=== PATIENT | female | born 1945 | race Caucasian/White ===

== ENCOUNTER 2020-09-03 00:36 | Inpatient (IN) | payer OTHER, MEDICAID, SELFPAY ==
[2020-09-03] VITALS (22 sets, daily range): BP systolic 98–145
[~2020-09-03] VITALS: Ht 165.1 cm; Wt 89.8 kg
[~2020-09-03 00:36] MED LIST: CARV25TA55 PO; CEL20 PO; CYCL-10 PO; ESCI20TA PO; ESOM40CA PO; FLUC200T PO; Fingerstick Blood Glucose Test XX; GABA300S PO; MULT PO; SIMV40TA2 PO; SITA100T11 PO; SSNOVOLOG SUBCUT
[2020-09-03] MEDS ORDERED: cefTRIAXone 1 GM IVPB PREMIX 50 ML IV ONE (00:45)
[2020-09-03] MEDS ORDERED: NEU300 PO (01:11)
[2020-09-03] MEDS ORDERED: LOPE2CAP PO (01:12)
[2020-09-03] MEDS ORDERED: LEVO250T58 PO (01:14)
[2020-09-03] MEDS ORDERED: ESCI20TA PO (01:15)
[2020-09-03] MEDS ORDERED: GLU500 PO (01:17)
[2020-09-03] MEDS ORDERED: LOSA100T3 PO (01:17)
[2020-09-03 01:21] LABS: BASOPHILS # (AUTO) 0.1 K/uL (0.0-0.2); BASOPHILS % (AUTO) 0.8 % (0.0-2.0); EOSINOPHILS # (AUTO) 0.4 K/uL (0.0-0.4); EOSINOPHILS % (AUTO) 2.1 % (0.0-4.0); LYMPHOCYTES # (AUTO) 2.8 K/uL (1.0-5.5); LYMPHOCYTES % (AUTO) 15.8 % (20.5-51.5); MEAN CORPUSCULAR HEMOGLOBIN 33 pg (27-31); MEAN CORPUSCULAR HGB CONC 33 % (32-36); MEAN CORPUSCULAR VOLUME 99 fL (79.0-98.0); MONOCYTES # (AUTO) 1.4 K/uL (0.0-1.0); MONOCYTES % (AUTO) 7.7 % (1.7-9.3); NEUTROPHILS # (AUTO) 13.2 K/uL (1.8-7.7); PLATELET COUNT (AUTO) 321 K/uL (130-430); RED CELL DISTRIBUTION WIDTH 13.3 % (9.0-15.0); WHITE BLOOD COUNT (AUTO) 17.9 K/uL (4.8-10.8)
[2020-09-03] MEDS ORDERED: BRI.2% EACH EYE (01:22)
[2020-09-03] MEDS ORDERED: ONDANSETRON HCL 4 MG/2 ML VIAL IVP ONE (01:30)
[2020-09-03] MEDS ORDERED: NACL 0.9% 1,000 ML IV ONE (01:30)
[2020-09-03 01:41] LABS: ALANINE AMINOTRANSFERASE 13 U/L (12-78); ALBUMIN 2.4 g/dL (3.4-4.8); ANION GAP 11 (5-15); ASPARTATE AMINOTRANSFERASE 15 U/L (10-37); CALCIUM 8.5 mg/dL (8.4-11.0); CHLORIDE 95 mmol/L (98-107); CREATININE 2.16 mg/dL (0.55-1.30); GLUCOSE 214 mg/dL (70-99); POTASSIUM 3.9 mmol/L (3.5-5.1); SODIUM SERUM 127 mmol/L (136-145); TOTAL BILIRUBIN 0.1 mg/dL (0.0-1.0)
[2020-09-03 01:42] LABS: HEMATOCRIT 12.9 % (36-48); HEMOGLOBIN 4.3 g/dL (12.0-16.0)
[2020-09-03 01:46] LABS: BILIRUBIN,URINE NEGATIVE (NEGATIVE); BLOOD, URINE NEGATIVE (NEGATIVE); COLOR,URINE YELLOW (YELLOW); GLUCOSE,URINE NEGATIVE (NEGATIVE); KETONES,URINE NEGATIVE (NEGATIVE); LEUKOCYTE ESTERASE ,URINE NEGATIVE (NEGATIVE); NITRITE, URINE NEGATIVE (NEGATIVE); PROTEIN URINE NEGATIVE (NEGATIVE); UROBILINOGEN,URINE 0.2 (0.2-1.0)
[2020-09-03 01:47] LABS: UREA NITROGEN, BLOOD 150 mg/dL (8-21)
[2020-09-03 01:50] LABS: CLARITY/URINE SLIGHTLY HAZY (CLEAR)
[2020-09-03 02:18] LABS: PROTHROMBIN TIME 10.4 SECS (9.5-12.5)
[2020-09-03] MEDS ORDERED: KCL 20 mEq in 0.45% NS 1000 mL 1,000 ML IV ONE (03:15)
[2020-09-03] MEDS ORDERED: FLU VACC QS2020-21(65UP)/PF 0.7 ML/SYRINGE I.M. PRN (05:00)
[2020-09-03] MEDS: ONDANSETRON HCL 4 MG/2 ML VIAL IVP PRN ×2 (09:06→13:09)
[2020-09-03] MEDS ORDERED: INSULIN REGULAR, HUMAN 100 UNITS/ML, 10 ML VIAL (humuLIN R) SUBCUT PRN (10:00)
[2020-09-03] MEDS: PANTOPRAZOLE SODIUM 40 MG in NS 50 ML IV SCH ×3 (10:11→16:22)
[2020-09-03] MEDS: KCL 20 mEq in D5NS 1000 mL 1,000 ML IV SCH ×2 (10:12→18:54)
[2020-09-03 13:34] LABS: NEUTROPHILS % (AUTO) 73.6 % (40.0-70.0)
[2020-09-03 19:02] LABS: HEMATOCRIT 26.9 % (36-48); HEMOGLOBIN 9.1 g/dL (12.0-16.0); MEAN CORPUSCULAR HEMOGLOBIN 32 pg (27-31); MEAN CORPUSCULAR HGB CONC 34 % (32-36); MEAN CORPUSCULAR VOLUME 95 fL (79.0-98.0); PLATELET COUNT (AUTO) 194 K/uL (130-430); RED BLOOD CELL COUNT(AUTO) 2.85 MIL/uL (4.2-6.2); RED CELL DISTRIBUTION WIDTH 13.9 % (9.0-15.0); WHITE BLOOD COUNT (AUTO) 20.4 K/uL (4.8-10.8)
[2020-09-03 20:15] LABS: BAND % (MANUAL) 6 % (0-6); BASOPHILS % (MANUAL) 0 % (0-2); EOSINOPHILS % (MANUAL) 1 % (0-7); LYMPHOCYTES % (MANUAL) 9 % (20-46); METAMYELOCYTES % 5 % (0-0); MONOCYTES % (MANUAL) 4 % (0-11)
[2020-09-04] VITALS (19 sets, daily range): BP systolic 120–152
[2020-09-04] MEDS: cefTRIAXone 1 GM in D5W 50 ML IV SCH ×2 (00:06→23:40)
[2020-09-04] MEDS: PANTOPRAZOLE SODIUM 40 MG in NS 50 ML IV SCH ×6 (01:00→20:43)
[2020-09-04] MEDS: KCL 20 mEq in D5NS 1000 mL 1,000 ML IV SCH (05:39)
[2020-09-04 07:05] LABS: ANION GAP 11 (5-15); BASOPHILS % (AUTO) 0.1 % (0.0-2.0); CALCIUM 7.2 mg/dL (8.4-11.0); CHLORIDE 110 mmol/L (98-107); CREATININE 1.51 mg/dL (0.55-1.30); EOSINOPHILS % (AUTO) 0.1 % (0.0-4.0); GLUCOSE 302 mg/dL (70-99); HEMATOCRIT 24.4 % (36-48); HEMOGLOBIN 8.1 g/dL (12.0-16.0); LYMPHOCYTES # (AUTO) 1.8 K/uL (1.0-5.5); LYMPHOCYTES % (AUTO) 8.4 % (20.5-51.5); MEAN CORPUSCULAR HEMOGLOBIN 31 pg (27-31); MEAN CORPUSCULAR HGB CONC 33 % (32-36); MEAN CORPUSCULAR VOLUME 94 fL (79.0-98.0); MONOCYTES # (AUTO) 2.2 K/uL (0.0-1.0); MONOCYTES % (AUTO) 10.2 % (1.7-9.3); NEUTROPHILS # (AUTO) 17.7 K/uL (1.8-7.7); NEUTROPHILS % (AUTO) 81.2 % (40.0-70.0); PLATELET COUNT (AUTO) 227 K/uL (130-430); SODIUM SERUM 143 mmol/L (136-145); UREA NITROGEN, BLOOD 99 mg/dL (8-21)
[2020-09-04 07:10] LABS: WHITE BLOOD COUNT (AUTO) 21.8 K/uL (4.8-10.8)
[2020-09-04] MEDS ORDERED: SIMETHICONE 40 MG/0.6 ML ML ONE (07:29)
[2020-09-04] MEDS ORDERED: BENZOCAINE 20% 0.5mL UD SPRAY MM ONE (07:29)
[2020-09-04] MEDS ORDERED: MIDAZOLAM HCL 5 MG/5 ML VIAL ONE (07:29)
[2020-09-04] MEDS ORDERED: fentaNYL CITRATE/PF 100 MCG/2 ML AMP ONE (07:29)
[2020-09-04 09:32] LABS: POTASSIUM 2.8 mmol/L (3.5-5.1)
[2020-09-04] MEDS ORDERED: KCL 40 mEq in 100 mL (PREMIX) 100 ML IV ONE (10:45)
[2020-09-04] MEDS ORDERED: POTASSIUM CHLORIDE 40 MEQ in D5W 250 ML IV ONE (11:00)
[2020-09-04] MEDS: POTASSIUM CHLORIDE 20 MEQ in 0.45% NACL 1,000 ML IV SCH ×2 (11:26→23:39)
[2020-09-05] MEDS: PANTOPRAZOLE SODIUM 40 MG in NS 50 ML IV SCH ×5 (00:59→22:10)
[2020-09-05] MEDS: ONDANSETRON HCL 4 MG/2 ML VIAL IVP PRN ×2 (05:19→20:11)
[2020-09-05 07:25] LABS: BASOPHILS % (AUTO) 0.2 % (0.0-2.0); EOSINOPHILS % (AUTO) 0.1 % (0.0-4.0); HEMATOCRIT 22.9 % (36-48); HEMOGLOBIN 7.8 g/dL (12.0-16.0); LYMPHOCYTES # (AUTO) 1.8 K/uL (1.0-5.5); LYMPHOCYTES % (AUTO) 8.4 % (20.5-51.5); MEAN CORPUSCULAR HEMOGLOBIN 32 pg (27-31); MEAN CORPUSCULAR HGB CONC 34 % (32-36); MEAN CORPUSCULAR VOLUME 92 fL (79.0-98.0); MONOCYTES # (AUTO) 2.1 K/uL (0.0-1.0); MONOCYTES % (AUTO) 9.9 % (1.7-9.3); NEUTROPHILS # (AUTO) 17.4 K/uL (1.8-7.7); PLATELET COUNT (AUTO) 267 K/uL (130-430); RED BLOOD CELL COUNT(AUTO) 2.48 MIL/uL (4.2-6.2); RED CELL DISTRIBUTION WIDTH 14.6 % (9.0-15.0); WHITE BLOOD COUNT (AUTO) 21.4 K/uL (4.8-10.8)
[2020-09-05 07:33] LABS: ANION GAP 8 (5-15); CHLORIDE 116 mmol/L (98-107); CREATININE 1.08 mg/dL (0.55-1.30); GLUCOSE 223 mg/dL (70-99); POTASSIUM 3.6 mmol/L (3.5-5.1); SODIUM SERUM 149 mmol/L (136-145); UREA NITROGEN, BLOOD 56 mg/dL (8-21)
[2020-09-05 07:40] LABS: NEUTROPHILS % (AUTO) 81.4 % (40.0-70.0)
[2020-09-05 08:00] VITALS: BP_SYST 151
[2020-09-05] MEDS ORDERED: CARVEDILOL 25 MG TABLET (COREG) PO ONE (10:45)
[2020-09-05] MEDS ORDERED: CITALOPRAM HYDROBROMIDE 20 MG TABLET PO ONE (10:45)
[2020-09-05 11:26] VITALS: BP_SYST 145
[2020-09-05] MEDS: POTASSIUM CHLORIDE 20 MEQ in 0.45% NACL 1,000 ML IV SCH (12:53)
[2020-09-05 15:37] VITALS: BP_SYST 142
[2020-09-05] MEDS ORDERED: *PPN PER PHARMACY XX PRN (18:00)
[2020-09-05] MEDS: CITALOPRAM HYDROBROMIDE 20 MG TABLET PO SCH (18:33)
[2020-09-05 19:45] VITALS: BP_SYST 124
[2020-09-05] MEDS: CARVEDILOL 25 MG TABLET (COREG) PO SCH (20:21)
[2020-09-05] MEDS: cefTRIAXone 1 GM in D5W 50 ML IV SCH (23:19)
[2020-09-06] VITALS: BP_SYST 134
[2020-09-06] MEDS: PANTOPRAZOLE SODIUM 40 MG in NS 50 ML IV SCH ×5 (03:10→23:03)
[2020-09-06] MEDS: POTASSIUM CHLORIDE 20 MEQ in 0.45% NACL 1,000 ML IV SCH (03:15)
[2020-09-06] MEDS: ONDANSETRON HCL 4 MG/2 ML VIAL IVP PRN ×4 (03:16→21:57)
[2020-09-06 07:08] LABS: ANION GAP 7 (5-15); CALCIUM 7.7 mg/dL (8.4-11.0); CHLORIDE 116 mmol/L (98-107); CREATININE 1.01 mg/dL (0.55-1.30); GLUCOSE 177 mg/dL (70-99); POTASSIUM 3.5 mmol/L (3.5-5.1); SODIUM SERUM 150 mmol/L (136-145); UREA NITROGEN, BLOOD 33 mg/dL (8-21)
[2020-09-06 08:10] LABS: BASOPHILS % (AUTO) 0.1 % (0.0-2.0); EOSINOPHILS # (AUTO) 0.1 K/uL (0.0-0.4); EOSINOPHILS % (AUTO) 0.4 % (0.0-4.0); HEMOGLOBIN 7.3 g/dL (12.0-16.0); LYMPHOCYTES # (AUTO) 1.9 K/uL (1.0-5.5); LYMPHOCYTES % (AUTO) 12.2 % (20.5-51.5); MEAN CORPUSCULAR HEMOGLOBIN 31 pg (27-31); MEAN CORPUSCULAR HGB CONC 33 % (32-36); MEAN CORPUSCULAR VOLUME 94 fL (79.0-98.0); MONOCYTES # (AUTO) 1.5 K/uL (0.0-1.0); MONOCYTES % (AUTO) 9.6 % (1.7-9.3); NEUTROPHILS # (AUTO) 12.3 K/uL (1.8-7.7); NEUTROPHILS % (AUTO) 77.7 % (40.0-70.0); PLATELET COUNT (AUTO) 276 K/uL (130-430); RED BLOOD CELL COUNT(AUTO) 2.35 MIL/uL (4.2-6.2); RED CELL DISTRIBUTION WIDTH 14.4 % (9.0-15.0); WHITE BLOOD COUNT (AUTO) 15.8 K/uL (4.8-10.8)
[2020-09-06] MEDS: CITALOPRAM HYDROBROMIDE 20 MG TABLET PO SCH ×2 (08:10→17:41)
[2020-09-06] MEDS: LOSARTAN POTASSIUM 50 MG TABLET (COZAAR) PO SCH (08:11)
[2020-09-06] MEDS: CARVEDILOL 25 MG TABLET (COREG) PO SCH ×2 (08:11→21:58)
[2020-09-06 08:23] VITALS: BP_SYST 123
[2020-09-06 09:07] LABS: PHOSPHORUS 1.9 mg/dL (2.7-4.5)
[2020-09-06 11:23] VITALS: BP_SYST 144
[2020-09-06] MEDS ORDERED: KCL 20 mEq in D5W 1000 mL 1,000 ML IV SCH (12:45)
[2020-09-06 15:27] VITALS: BP_SYST 140
[2020-09-06] MEDS ORDERED: K PHOS 15 MM in D5W 250 ML IV ONE (15:30)
[2020-09-06 19:55] VITALS: BP_SYST 127
[2020-09-06] MEDS ORDERED: MICONAZOLE NITRATE APPL VG SCH (21:00)
[2020-09-06] MEDS ORDERED: TPN PERIPHERAL IV SCH ×10 (21:00)
[2020-09-06] MEDS ORDERED: SODIUM ACETATE IV SCH ×10 (21:00)
[2020-09-06] MEDS ORDERED: POTASSIUM ACETATE IV SCH ×10 (21:00)
[2020-09-06] MEDS ORDERED: [UNRECOGNIZED DRUG - OTHER] IV SCH ×10 (21:00)
[2020-09-06] MEDS: KCL 20 mEq in D5W 1000 mL 1,000 ML IV SCH (22:07)
[2020-09-06] MEDS: cefTRIAXone 1 GM in D5W 50 ML IV SCH (23:06)
[2020-09-07] MEDS: PANTOPRAZOLE SODIUM 40 MG in NS 50 ML IV SCH ×5 (04:23→23:33)
[2020-09-07 06:36] LABS: BASOPHILS % (AUTO) 0.3 % (0.0-2.0); EOSINOPHILS # (AUTO) 0.2 K/uL (0.0-0.4); EOSINOPHILS % (AUTO) 1.9 % (0.0-4.0); HEMATOCRIT 24.1 % (36-48); LYMPHOCYTES % (AUTO) 17.4 % (20.5-51.5); MEAN CORPUSCULAR HEMOGLOBIN 31 pg (27-31); MEAN CORPUSCULAR HGB CONC 33 % (32-36); MEAN CORPUSCULAR VOLUME 94 fL (79.0-98.0); MONOCYTES # (AUTO) 1.3 K/uL (0.0-1.0); NEUTROPHILS % (AUTO) 69.4 % (40.0-70.0); PLATELET COUNT (AUTO) 227 K/uL (130-430); RED BLOOD CELL COUNT(AUTO) 2.57 MIL/uL (4.2-6.2); RED CELL DISTRIBUTION WIDTH 14.7 % (9.0-15.0); WHITE BLOOD COUNT (AUTO) 11.5 K/uL (4.8-10.8)
[2020-09-07 08:00] VITALS: BP_SYST 127
[2020-09-07] MEDS: CITALOPRAM HYDROBROMIDE 20 MG TABLET PO SCH ×2 (08:36→18:17)
[2020-09-07] MEDS: CARVEDILOL 25 MG TABLET (COREG) PO SCH ×2 (08:37→22:02)
[2020-09-07] MEDS: LOSARTAN POTASSIUM 50 MG TABLET (COZAAR) PO SCH (08:39)
[2020-09-07 09:45] LABS: ALANINE AMINOTRANSFERASE 18 U/L (12-78); ALBUMIN 2.3 g/dL (3.4-4.8); ANION GAP 6 (5-15); ASPARTATE AMINOTRANSFERASE 34 U/L (10-37); CHLORIDE 109 mmol/L (98-107); CREATININE 0.83 mg/dL (0.55-1.30); GLUCOSE 216 mg/dL (70-99); SODIUM SERUM 141 mmol/L (136-145); TOTAL BILIRUBIN 0.3 mg/dL (0.0-1.0); UREA NITROGEN, BLOOD 21 mg/dL (8-21)
[2020-09-07 09:46] LABS: POTASSIUM 4.4 mmol/L (3.5-5.1); TRIGLYCERIDES 187 mg/dL (30-150)
[2020-09-07 12:44] VITALS: BP_SYST 128
[2020-09-07] MEDS ORDERED: DIPHENHYDRAMINE INJ 50 MG/ML VIAL IVP PRN (15:45)
[2020-09-07] MEDS: KCL 20 mEq in D5W 1000 mL 1,000 ML IV SCH (15:55)
[2020-09-07 16:05] VITALS: BP_SYST 131
[2020-09-07] MEDS ORDERED: COMMUNICATION ORDER XX ONE (16:45)
[2020-09-07 20:10] VITALS: BP_SYST 114
[2020-09-07] MEDS ORDERED: SODIUM ACETATE IV SCH ×10 (21:00)
[2020-09-07] MEDS ORDERED: [UNRECOGNIZED DRUG - OTHER] IV SCH ×10 (21:00)
[2020-09-07] MEDS ORDERED: TPN PERIPHERAL IV SCH ×10 (21:00)
[2020-09-07] MEDS ORDERED: POTASSIUM ACETATE IV SCH ×10 (21:00)
[2020-09-07] MEDS: CLOTRIMAZOLE 2% 3 DAY VAGINAL 21 GM CREAM.APPL VG SCH (22:01)
[2020-09-07] MEDS: metFORMIN HCL 500 MG TABLET PO SCH (23:32)
[2020-09-07] MEDS: cefTRIAXone 1 GM in D5W 50 ML IV SCH (23:35)
[2020-09-08 00:04] VITALS: BP_SYST 114
[2020-09-08] MEDS: PANTOPRAZOLE SODIUM 40 MG in NS 50 ML IV SCH ×5 (02:56→22:39)
[2020-09-08] MEDS: KCL 20 mEq in D5W 1000 mL 1,000 ML IV SCH ×2 (05:22→11:56)
[2020-09-08 07:27] LABS: ALANINE AMINOTRANSFERASE 16 U/L (12-78); ALBUMIN 2.3 g/dL (3.4-4.8); ANION GAP 7 (5-15); ASPARTATE AMINOTRANSFERASE 25 U/L (10-37); CHLORIDE 104 mmol/L (98-107); CREATININE 0.84 mg/dL (0.55-1.30); GLUCOSE 144 mg/dL (70-99); PHOSPHORUS 2.7 mg/dL (2.7-4.5); POTASSIUM 3.9 mmol/L (3.5-5.1); SODIUM SERUM 137 mmol/L (136-145); TOTAL BILIRUBIN 0.3 mg/dL (0.0-1.0); UREA NITROGEN, BLOOD 15 mg/dL (8-21)
[2020-09-08] MEDS: CARVEDILOL 25 MG TABLET (COREG) PO SCH ×2 (08:06→21:15)
[2020-09-08] MEDS: CITALOPRAM HYDROBROMIDE 20 MG TABLET PO SCH ×2 (08:06→18:58)
[2020-09-08] MEDS: LOSARTAN POTASSIUM 50 MG TABLET (COZAAR) PO SCH (08:06)
[2020-09-08 10:22] LABS: BASOPHILS # (AUTO) 0.1 K/uL (0.0-0.2); BASOPHILS % (AUTO) 0.8 % (0.0-2.0); EOSINOPHILS # (AUTO) 0.6 K/uL (0.0-0.4); EOSINOPHILS % (AUTO) 4.9 % (0.0-4.0); HEMATOCRIT 27.6 % (36-48); HEMOGLOBIN 9.3 g/dL (12.0-16.0); LYMPHOCYTES # (AUTO) 1.6 K/uL (1.0-5.5); LYMPHOCYTES % (AUTO) 13.9 % (20.5-51.5); MEAN CORPUSCULAR HEMOGLOBIN 32 pg (27-31); MEAN CORPUSCULAR HGB CONC 34 % (32-36); MEAN CORPUSCULAR VOLUME 93 fL (79.0-98.0); MONOCYTES # (AUTO) 1.1 K/uL (0.0-1.0); MONOCYTES % (AUTO) 9.6 % (1.7-9.3); NEUTROPHILS # (AUTO) 8.1 K/uL (1.8-7.7); NEUTROPHILS % (AUTO) 70.8 % (40.0-70.0); PLATELET COUNT (AUTO) 235 K/uL (130-430); RED BLOOD CELL COUNT(AUTO) 2.96 MIL/uL (4.2-6.2); RED CELL DISTRIBUTION WIDTH 14.4 % (9.0-15.0); WHITE BLOOD COUNT (AUTO) 11.4 K/uL (4.8-10.8)
[2020-09-08] MEDS ORDERED: MAGNESIUM SULFATE 50 ML IV ONE (10:30)
[2020-09-08 12:00] VITALS: BP_SYST 121
[2020-09-08] MEDS: ONDANSETRON HCL 4 MG/2 ML VIAL IVP PRN (12:31)
[2020-09-08 16:00] VITALS: BP_SYST 117
[2020-09-08] MEDS ORDERED: MENTHOL/ZINC OXIDE 113 GM OINT. TP PRN (18:00)
[2020-09-08 18:08] LABS: HEMATOCRIT 29.4 % (36-48); HEMOGLOBIN 9.8 g/dL (12.0-16.0); MEAN CORPUSCULAR HEMOGLOBIN 31 pg (27-31); MEAN CORPUSCULAR VOLUME 93 fL (79.0-98.0); RED BLOOD CELL COUNT(AUTO) 3.16 MIL/uL (4.2-6.2); WHITE BLOOD COUNT (AUTO) 17.5 K/uL (4.8-10.8)
[2020-09-08 18:09] LABS: MEAN CORPUSCULAR HGB CONC 33 % (32-36); NEUTROPHILS % (AUTO) 84.8 % (40.0-70.0); PLATELET COUNT (AUTO) 248 K/uL (130-430); RED CELL DISTRIBUTION WIDTH 14.2 % (9.0-15.0)
[2020-09-08 18:10] LABS: BASOPHILS % (AUTO) 0.1 % (0.0-2.0); EOSINOPHILS # (AUTO) 0.4 K/uL (0.0-0.4); EOSINOPHILS % (AUTO) 2.5 % (0.0-4.0); LYMPHOCYTES % (AUTO) 5.5 % (20.5-51.5); MONOCYTES # (AUTO) 1.2 K/uL (0.0-1.0); MONOCYTES % (AUTO) 7.1 % (1.7-9.3); NEUTROPHILS # (AUTO) 14.8 K/uL (1.8-7.7)
[2020-09-08 20:45] VITALS: BP_SYST 120
[2020-09-08] MEDS: CLOTRIMAZOLE 2% 3 DAY VAGINAL 21 GM CREAM.APPL VG SCH (21:15)
[2020-09-08] MEDS: cefTRIAXone 1 GM in D5W 50 ML IV SCH (23:53)
[2020-09-08] MEDS: metFORMIN HCL 500 MG TABLET PO SCH (23:53)
[2020-09-09] MEDS: PANTOPRAZOLE SODIUM 40 MG in NS 50 ML IV SCH (03:03)
[2020-09-09] MEDS: LOSARTAN POTASSIUM 50 MG TABLET (COZAAR) PO SCH (09:00)
[2020-09-09] MEDS: MENTHOL/ZINC OXIDE 113 GM OINT. TP SCH (11:06)
[2020-09-09] MEDS: PANTOPRAZOLE SODIUM 40 MG/VIAL (PROTONIX) IVP SCH ×2 (11:06→20:37)
[2020-09-09] MEDS: CITALOPRAM HYDROBROMIDE 20 MG TABLET PO SCH ×2 (11:25→17:54)
[2020-09-09] MEDS: CARVEDILOL 25 MG TABLET (COREG) PO SCH ×2 (11:25→20:36)
[2020-09-09 12:00] VITALS: BP_SYST 121
[2020-09-09] MEDS: KCL 20 mEq in D5W 1000 mL 1,000 ML IV SCH (13:14)
[2020-09-09 16:20] VITALS: BP_SYST 105
[2020-09-09] MEDS ORDERED: metFORMIN HCL 500 MG TABLET PO ONE (17:00)
[2020-09-09 20:00] VITALS: BP_SYST 97
[2020-09-09] MEDS: CLOTRIMAZOLE 2% 3 DAY VAGINAL 21 GM CREAM.APPL VG SCH (20:36)
[2020-09-09] MEDS: cefTRIAXone 1 GM in D5W 50 ML IV SCH (22:56)
[2020-09-10 00:30] VITALS: BP_SYST 118
[2020-09-10] MEDS: ONDANSETRON HCL 4 MG/2 ML VIAL IVP PRN ×2 (03:17→08:15)
[2020-09-10] MEDS: metFORMIN HCL 500 MG TABLET PO SCH ×2 (06:02→18:15)
[2020-09-10] MEDS: KCL 20 mEq in D5W 1000 mL 1,000 ML IV SCH (06:02)
[2020-09-10 07:05] LABS: BASOPHILS % (AUTO) 0.4 % (0.0-2.0); EOSINOPHILS # (AUTO) 0.4 K/uL (0.0-0.4); EOSINOPHILS % (AUTO) 3.5 % (0.0-4.0); HEMATOCRIT 25.9 % (36-48); HEMOGLOBIN 8.6 g/dL (12.0-16.0); LYMPHOCYTES # (AUTO) 1.2 K/uL (1.0-5.5); LYMPHOCYTES % (AUTO) 9.9 % (20.5-51.5); MEAN CORPUSCULAR HEMOGLOBIN 31 pg (27-31); MEAN CORPUSCULAR HGB CONC 33 % (32-36); MEAN CORPUSCULAR VOLUME 94 fL (79.0-98.0); MONOCYTES % (AUTO) 8.3 % (1.7-9.3); NEUTROPHILS # (AUTO) 9.6 K/uL (1.8-7.7); NEUTROPHILS % (AUTO) 77.9 % (40.0-70.0); PLATELET COUNT (AUTO) 225 K/uL (130-430); RED BLOOD CELL COUNT(AUTO) 2.76 MIL/uL (4.2-6.2); RED CELL DISTRIBUTION WIDTH 14.2 % (9.0-15.0); WHITE BLOOD COUNT (AUTO) 12.3 K/uL (4.8-10.8)
[2020-09-10 07:23] LABS: ANION GAP 7 (5-15); CALCIUM 7.7 mg/dL (8.4-11.0); CHLORIDE 102 mmol/L (98-107); CREATININE 0.82 mg/dL (0.55-1.30); GLUCOSE 176 mg/dL (70-99); POTASSIUM 4.2 mmol/L (3.5-5.1); SODIUM SERUM 134 mmol/L (136-145); UREA NITROGEN, BLOOD 15 mg/dL (8-21)
[2020-09-10 08:00] VITALS: BP_SYST 114
[2020-09-10] MEDS: CITALOPRAM HYDROBROMIDE 20 MG TABLET PO SCH ×2 (08:15→18:15)
[2020-09-10] MEDS: PANTOPRAZOLE SODIUM 40 MG/VIAL (PROTONIX) IVP SCH ×2 (08:15→21:10)
[2020-09-10] MEDS: CARVEDILOL 25 MG TABLET (COREG) PO SCH ×2 (08:16→21:10)
[2020-09-10] MEDS: LOSARTAN POTASSIUM 50 MG TABLET (COZAAR) PO SCH (08:18)
[2020-09-10] MEDS: MENTHOL/ZINC OXIDE 113 GM OINT. TP SCH (08:19)
[2020-09-10 12:34] VITALS: BP_SYST 113
[2020-09-10 15:33] LABS: BASOPHILS # (AUTO) 0.1 K/uL (0.0-0.2); BASOPHILS % (AUTO) 0.5 % (0.0-2.0); EOSINOPHILS # (AUTO) 0.4 K/uL (0.0-0.4); HEMATOCRIT 24.7 % (36-48); HEMOGLOBIN 8.3 g/dL (12.0-16.0); LYMPHOCYTES # (AUTO) 0.9 K/uL (1.0-5.5); LYMPHOCYTES % (AUTO) 7.2 % (20.5-51.5); MEAN CORPUSCULAR HEMOGLOBIN 31 pg (27-31); MEAN CORPUSCULAR HGB CONC 34 % (32-36); MEAN CORPUSCULAR VOLUME 92 fL (79.0-98.0); MONOCYTES # (AUTO) 1.1 K/uL (0.0-1.0); MONOCYTES % (AUTO) 9.1 % (1.7-9.3); NEUTROPHILS % (AUTO) 80.2 % (40.0-70.0); PLATELET COUNT (AUTO) 213 K/uL (130-430); RED BLOOD CELL COUNT(AUTO) 2.68 MIL/uL (4.2-6.2); RED CELL DISTRIBUTION WIDTH 14.2 % (9.0-15.0); WHITE BLOOD COUNT (AUTO) 12.5 K/uL (4.8-10.8)
[2020-09-10 16:56] VITALS: BP_SYST 116
[2020-09-10 23:01] VITALS: BP_SYST 106
[2020-09-11 00:30] VITALS: BP_SYST 109
[2020-09-11] MEDS ORDERED: KCL 20 mEq in 100 mL (PREMIX) 100 ML IV ONE (02:29)
[2020-09-11] MEDS: KCL 20 mEq in D5W 1000 mL 1,000 ML IV SCH ×2 (02:41→20:48)
[2020-09-11] MEDS: ONDANSETRON HCL 4 MG/2 ML VIAL IVP PRN (04:37)
[2020-09-11] MEDS: metFORMIN HCL 500 MG TABLET PO SCH ×2 (06:12→17:07)
[2020-09-11 08:00] VITALS: BP_SYST 117
[2020-09-11] MEDS: MENTHOL/ZINC OXIDE 113 GM OINT. TP SCH (08:24)
[2020-09-11 08:55] LABS: BASOPHILS % (AUTO) 0.3 % (0.0-2.0); EOSINOPHILS # (AUTO) 0.4 K/uL (0.0-0.4); EOSINOPHILS % (AUTO) 3.6 % (0.0-4.0); HEMATOCRIT 27.5 % (36-48); HEMOGLOBIN 9.1 g/dL (12.0-16.0); LYMPHOCYTES # (AUTO) 0.8 K/uL (1.0-5.5); LYMPHOCYTES % (AUTO) 7.2 % (20.5-51.5); MEAN CORPUSCULAR HEMOGLOBIN 31 pg (27-31); MEAN CORPUSCULAR HGB CONC 33 % (32-36); MEAN CORPUSCULAR VOLUME 93 fL (79.0-98.0); MONOCYTES # (AUTO) 0.9 K/uL (0.0-1.0); MONOCYTES % (AUTO) 8.3 % (1.7-9.3); NEUTROPHILS # (AUTO) 9.1 K/uL (1.8-7.7); NEUTROPHILS % (AUTO) 80.6 % (40.0-70.0); PLATELET COUNT (AUTO) 234 K/uL (130-430); RED BLOOD CELL COUNT(AUTO) 2.97 MIL/uL (4.2-6.2); RED CELL DISTRIBUTION WIDTH 14.5 % (9.0-15.0); WHITE BLOOD COUNT (AUTO) 11.3 K/uL (4.8-10.8)
[2020-09-11] MEDS: PANTOPRAZOLE SODIUM 40 MG/VIAL (PROTONIX) IVP SCH ×2 (08:56→20:48)
[2020-09-11] MEDS: LOSARTAN POTASSIUM 50 MG TABLET (COZAAR) PO SCH (08:57)
[2020-09-11] MEDS: CITALOPRAM HYDROBROMIDE 20 MG TABLET PO SCH ×2 (08:58→17:07)
[2020-09-11] MEDS: CARVEDILOL 25 MG TABLET (COREG) PO SCH ×2 (08:58→20:50)
[2020-09-11 12:07] VITALS: BP_SYST 112
[2020-09-11 15:56] VITALS: BP_SYST 112
[2020-09-11 15:57] VITALS: BP_SYST 123
[2020-09-11 20:00] VITALS: BP_SYST 119
[2020-09-12] VITALS: BP_SYST 119
[2020-09-12] MEDS: metFORMIN HCL 500 MG TABLET PO SCH ×2 (06:02→17:23)
[2020-09-12] MEDS: KCL 20 mEq in D5W 1000 mL 1,000 ML IV SCH ×2 (06:06→23:21)
[2020-09-12 06:09] LABS: BASOPHILS % (AUTO) 0.3 % (0.0-2.0); EOSINOPHILS # (AUTO) 0.5 K/uL (0.0-0.4); EOSINOPHILS % (AUTO) 5.9 % (0.0-4.0); HEMATOCRIT 26.8 % (36-48); HEMOGLOBIN 9.1 g/dL (12.0-16.0); LYMPHOCYTES # (AUTO) 1.1 K/uL (1.0-5.5); LYMPHOCYTES % (AUTO) 12.9 % (20.5-51.5); MEAN CORPUSCULAR HEMOGLOBIN 31 pg (27-31); MEAN CORPUSCULAR HGB CONC 34 % (32-36); MEAN CORPUSCULAR VOLUME 92 fL (79.0-98.0); MONOCYTES # (AUTO) 1.1 K/uL (0.0-1.0); MONOCYTES % (AUTO) 11.9 % (1.7-9.3); NEUTROPHILS # (AUTO) 6.2 K/uL (1.8-7.7); PLATELET COUNT (AUTO) 264 K/uL (130-430); RED BLOOD CELL COUNT(AUTO) 2.92 MIL/uL (4.2-6.2); RED CELL DISTRIBUTION WIDTH 14.4 % (9.0-15.0); WHITE BLOOD COUNT (AUTO) 8.9 K/uL (4.8-10.8)
[2020-09-12 07:10] LABS: ANION GAP 6 (5-15); CALCIUM 8.6 mg/dL (8.4-11.0); CHLORIDE 100 mmol/L (98-107); CREATININE 0.84 mg/dL (0.55-1.30); GLUCOSE 152 mg/dL (70-99); PHOSPHORUS 3.4 mg/dL (2.7-4.5); SODIUM SERUM 134 mmol/L (136-145); UREA NITROGEN, BLOOD 15 mg/dL (8-21)
[2020-09-12 08:00] VITALS: BP_SYST 123
[2020-09-12 08:25] LABS: POTASSIUM 5.4 mmol/L (3.5-5.1)
[2020-09-12] MEDS: PANTOPRAZOLE SODIUM 40 MG/VIAL (PROTONIX) IVP SCH ×2 (08:47→20:13)
[2020-09-12] MEDS: CITALOPRAM HYDROBROMIDE 20 MG TABLET PO SCH ×2 (08:49→17:23)
[2020-09-12] MEDS: CARVEDILOL 25 MG TABLET (COREG) PO SCH ×2 (08:49→20:16)
[2020-09-12] MEDS: MENTHOL/ZINC OXIDE 113 GM OINT. TP SCH (08:50)
[2020-09-12] MEDS: LOSARTAN POTASSIUM 50 MG TABLET (COZAAR) PO SCH (08:50)
[2020-09-12] MEDS ORDERED: cefTRIAXone 1 GM in D5W 50 ML IV ONE (11:45)
[2020-09-12 12:00] VITALS: BP_SYST 121
[2020-09-12 16:00] VITALS: BP_SYST 122
[2020-09-12 20:00] VITALS: BP_SYST 109
[2020-09-13] VITALS: BP_SYST 119
[2020-09-13] MEDS: KCL 20 mEq in D5W 1000 mL 1,000 ML IV SCH (05:20)
[2020-09-13] MEDS: metFORMIN HCL 500 MG TABLET PO SCH ×2 (06:01→17:00)
[2020-09-13 07:55] VITALS: BP_SYST 130
[2020-09-13] MEDS: PANTOPRAZOLE SODIUM 40 MG/VIAL (PROTONIX) IVP SCH (08:34)
[2020-09-13] MEDS: LOSARTAN POTASSIUM 50 MG TABLET (COZAAR) PO SCH (08:34)
[2020-09-13] MEDS: CITALOPRAM HYDROBROMIDE 20 MG TABLET PO SCH (08:34)
[2020-09-13] MEDS: CARVEDILOL 25 MG TABLET (COREG) PO SCH (08:35)
[2020-09-13] MEDS: MENTHOL/ZINC OXIDE 113 GM OINT. TP SCH (08:39)
[2020-09-13 11:40] VITALS: BP_SYST 136
[2020-09-13 15:18] VITALS: BP_SYST 128
[2020-09-13 15:23] VITALS: BP_SYST 128
[2020-09-13] MEDS ORDERED: CITA40TA22 PO (15:55)
[2020-09-13] MEDS ORDERED: CEL20 PO (15:55)
[2020-09-13] MEDS ORDERED: DIPH25CA83 PO (15:56)
[2020-09-13] MEDS ORDERED: LINA5TAB2 PO (15:56)
[2020-09-13] MEDS ORDERED: CALMO120 TP (15:57)
[2020-09-13] MEDS ORDERED: ONDA4TAB5 PO (15:58)
[2020-09-13] MEDS ORDERED: PRO40 PO (15:59)
== END 2020-09-13 17:43 | DRG 377 ==
LOC: SED 00:36 → SIC 03:00 → STU 09-04 17:43
PROVIDERS: ADMIT Family Medicine; ATTEND Family Medicine
PROC: 30233N1 Transfusion of Nonautologous Red Blood Cells into Peripheral Vein, Percutaneous Approach (ICD-10-PCS; 2020-09-03)
PROC: 02HV33Z Insertion of Infusion Device into Superior Vena Cava, Percutaneous Approach (ICD-10-PCS; 2020-09-03)
PROC: B548ZZA Ultrasonography of Superior Vena Cava, Guidance (ICD-10-PCS; 2020-09-03)
PROC: 0DB68ZX Excision of Stomach, Via Natural or Artificial Opening Endoscopic, Diagnostic (ICD-10-PCS; principal; 2020-09-04 08:00)
DX: K26.4 Chronic or unspecified duodenal ulcer with hemorrhage (principal); K20.91 Esophagitis, unspecified with bleeding; N17.0 Acute kidney failure with tubular necrosis; D62 Acute posthemorrhagic anemia; K31.1 Adult hypertrophic pyloric stenosis; E11.22 Type 2 diabetes mellitus with diabetic chronic kidney disease; E11.43 Type 2 diabetes mellitus with diabetic autonomic (poly)neuropathy; E11.65 Type 2 diabetes mellitus with hyperglycemia; E66.01 Morbid (severe) obesity due to excess calories; E86.0 Dehydration; F32.9 Major depressive disorder, single episode, unspecified; F43.22 Adjustment disorder with anxiety; I12.9 Hypertensive chronic kidney disease with stage 1 through stage 4 chronic kidney disease, or unspecified chronic kidney disease; K31.84 Gastroparesis; K62.3 Rectal prolapse; N18.9 Chronic kidney disease, unspecified; Z20.828 Contact with and (suspected) exposure to other viral communicable diseases; K44.9 Diaphragmatic hernia without obstruction or gangrene; M19.90 Unspecified osteoarthritis, unspecified site; Z88.2 Allergy status to sulfonamides; Z79.4 Long term (current) use of insulin; Z88.8 Allergy status to other drugs, medicaments and biological substances; Z79.899 Other long term (current) drug therapy; Z68.32 Body mass index [BMI] 32.0-32.9, adult
CPT/HCPCS: 36415; 36430; 71045; 76700-TC; 76856-TC; 80048; 80053; 81003; 82962; 83036; 83605; 83735-TC; 83880; 84100-TC; 84478-TC; 84484; 85007; 85025; 85027; 85610-TC; 85730-TC; 86886; 86900; 86901; 86920; 87040-TC; 87081; 87086; 88305; 88312; 88313; 93005; 96361; 96365; 96375; 97110-GO; 97110-GP; 97112-GP; 97116-GP; 97530-GO; 97530-GP; 97535-GO; 99285; C1751; C9113; G0378; J0610; J0696; J2250; J2405; J3010; J3475; J3480; J7040; J7050; J7060; P9021

== ENCOUNTER 2021-11-07 01:24 | Emergency (ER) | payer OTHER, MEDICAID, SELFPAY ==
[~2021-11-07] VITALS: Ht 165.1 cm; Wt 83.9 kg
[~2021-11-07 01:24] MED LIST changes: +CALMO120 TP; +CITA40TA22 PO; -CYCL-10 PO; +DIPH25CA83 PO; -ESCI20TA PO; -ESOM40CA PO; -FLUC200T PO; -GABA300S PO; +GLU500 PO; +LINA5TAB2 PO; +LOSA100T3 PO; -MULT PO; +ONDA4TAB5 PO; +PRO40 PO; -SIMV40TA2 PO; -SITA100T11 PO; -SSNOVOLOG SUBCUT
[2021-11-07 01:34] VITALS: BP_SYST 155
--- NOTE | 2021-11-07 01:34 | NUR ---
Patient triaged and placed in AMBULANCE 1. VSS and patient appears in no acute distress at this time. Accompanied by , awaiting available bed, and MD notified of need for MSE.
--- NOTE | 2021-11-07 03:13 | NUR ---
PT BIB BLS AMBULANCE FROM [facility] FOR NAUSEA/ VOMITING X3 DAYS. PT STATES SHE GOT THE COVID BOOSTER ON THE 15 AND HAS BEEN FEELING WEIRD SINCE. - ABD PAIN. PT STATE SHE HAS HAD URINATING PAIN WELL. A&OX4. -CP
[2021-11-07] MEDS ORDERED: ONDANSETRON HCL 4 MG/2 ML VIAL IVP ONE ×2 (03:30→05:45)
--- NOTE | 2021-11-07 03:30 | NUR ---
# 20 gauge angiocath placed to RAC. Use of asceptic technique. Opsite placed over site. Blood return noted. Blood for lab drawn from site. Flushed with 10 cc of normal saline. No evidence of infiltration noted. Patient tolerated well.
[2021-11-07 04:28] LABS: BASOPHILS % (AUTO) 0.1 % (0.0-2.0); EOSINOPHILS % (AUTO) 0.3 % (0.0-4.0); HEMATOCRIT 34.4 % (36-48); HEMOGLOBIN 11.5 g/dL (12.0-16.0); LYMPHOCYTES # (AUTO) 1.3 K/uL (1.0-5.5); LYMPHOCYTES % (AUTO) 13.6 % (20.5-51.5); MEAN CORPUSCULAR HEMOGLOBIN 32 pg (27-31); MEAN CORPUSCULAR HGB CONC 34 % (32-36); MEAN CORPUSCULAR VOLUME 94 fL (79.0-98.0); MONOCYTES # (AUTO) 1.2 K/uL (0.0-1.0); MONOCYTES % (AUTO) 12.1 % (1.7-9.3); NEUTROPHILS # (AUTO) 7.3 K/uL (1.8-7.7); NEUTROPHILS % (AUTO) 73.9 % (40.0-70.0); PLATELET COUNT (AUTO) 240 K/uL (130-430); RED BLOOD CELL COUNT(AUTO) 3.65 MIL/uL (4.2-6.2); WHITE BLOOD COUNT (AUTO) 9.9 K/uL (4.8-10.8)
[2021-11-07 04:30] LABS: ANION GAP 8 (5-15); CALCIUM 8.7 mg/dL (8.4-11.0); CHLORIDE 97 mmol/L (98-107); GLUCOSE 162 mg/dL (70-99); SODIUM SERUM 134 mmol/L (136-145); UREA NITROGEN, BLOOD 28 mg/dL (8-21)
[2021-11-07 04:37] LABS: ALANINE AMINOTRANSFERASE 21 U/L (12-78); ALBUMIN 2.8 g/dL (3.4-4.8); ASPARTATE AMINOTRANSFERASE 16 U/L (10-37); LIPASE 207 U/L (73-393); TOTAL BILIRUBIN 0.6 mg/dL (0.0-1.0)
[2021-11-07 04:46] LABS: BILIRUBIN,URINE NEGATIVE (NEGATIVE); COLOR,URINE YELLOW (YELLOW); GLUCOSE,URINE NEGATIVE (NEGATIVE); KETONES,URINE NEGATIVE (NEGATIVE); LEUKOCYTE ESTERASE ,URINE 2+ (NEGATIVE); NITRITE, URINE NEGATIVE (NEGATIVE); PH,URINE 7.5 (5.0-8.0); PROTEIN URINE 1+ (NEGATIVE); UROBILINOGEN,URINE 0.2 (0.2-1.0)
[2021-11-07 04:47] LABS: BLOOD, URINE TRACE (NEGATIVE); CLARITY/URINE HAZY (CLEAR)
--- NOTE | 2021-11-07 05:13 | NUR ---
ER at bedside examining patient.
[2021-11-07] MEDS ORDERED: NACL 0.9% 1,000 ML IV ONE (05:15)
[2021-11-07] MEDS ORDERED: cefTRIAXone 1 GM IVPB PREMIX 50 ML IV ONE (05:15)
[2021-11-07 05:35] LABS: BACTERIA,URINE MANY /HPF (None Seen); WBC,URINE 20-50 /HPF (0-3)
[2021-11-07 05:36] LABS: MUCUS,URINE None Seen /LPF (None Seen); TRIPLE PHOSPHATE CRYSTAL,UR 0-10 /HPF (None Seen); URINE AMORPHOUS PHOSPHATES 1+ /HPF (None Seen)
--- NOTE | 2021-11-07 06:33 | NUR ---
PT GIVEN ENSURE FOR A FLUID CHALLENGE
--- NOTE | 2021-11-07 07:08 | NUR ---
REPORT RECIVED FROM CONOR LOMAX FOR CONTINUING CARE
--- NOTE | 2021-11-07 07:10 | NUR ---
ER DR. MURPHY AT THE BEDSIDE FOR ULTRASOUND
--- NOTE | 2021-11-07 07:15 | NUR ---
Patient resting quietly. No acute distress noted. Vital signs within normal range.
[2021-11-07] MEDS ORDERED: ONDA-8 TL (07:23)
[2021-11-07] MEDS ORDERED: CIPR-260 PO (07:23)
[2021-11-07 08:25] VITALS: BP_SYST 155
--- NOTE | 2021-11-07 08:25 | NUR ---
Patient given written and verbal discharge instructions and verbalizes understanding. ER MD discussed with patient the results and treatment provided. Patient in stable condition. ID arm band removed. IV catheter removed intact and dressing applied, no active bleeding. Rx of CIPRO AND ZOFRAN given. Patient educated on pain management and to follow up with PMD. Pain Scale 0/10. Opportunity for questions provided and answered. Medication side effect fact sheet provided.
== END 2021-11-07 08:25 | disposition home or self-care (01) ==
LOC: SED 01:24
DX: N39.0 Urinary tract infection, site not specified (principal); R11.2 Nausea with vomiting, unspecified; I10 Essential (primary) hypertension; E11.9 Type 2 diabetes mellitus without complications; Z79.899 Other long term (current) drug therapy; Z88.8 Allergy status to other drugs, medicaments and biological substances; Z79.84 Long term (current) use of oral hypoglycemic drugs; Z20.822 Contact with and (suspected) exposure to COVID-19
CPT/HCPCS: 36415; 80053; 81000; 83605; 83690; 83880; 84484; 85025; 87040; 87086; 87426; 93005; 96365; 96375; 96376; 99284; J0696; J2405

== ENCOUNTER 2022-03-26 11:15 | Inpatient (IN) | payer OTHER, MEDICAID ==
[~2022-03-26] VITALS: Ht 167.6 cm; Wt 83.5 kg
[~2022-03-26 11:15] MED LIST changes: +ACET325T GT; +CARV25TA55 PEG; -CARV25TA55 PO; +CEL20 PEG; -CEL20 PO; +CITA40TA22 PEG; -CITA40TA22 PO; +DIPH25CA83 PEG; -DIPH25CA83 PO; +ESCI10TA PO; -GLU500 PO; +LOPE2CAP PO; +LORA10CA PEG; +MECL-225 PEG; +ONDA-8 TL; +SACC250C3 PO; +SIMV40TA2 PEG
[2022-03-26 11:28] VITALS: BP_SYST 159
[2022-03-26 11:50] LABS: BASOPHILS # (AUTO) 0.1 K/uL (0.0-0.2); BASOPHILS % (AUTO) 0.5 % (0.0-2.0); EOSINOPHILS # (AUTO) 0.1 K/uL (0.0-0.4); EOSINOPHILS % (AUTO) 0.8 % (0.0-4.0); HEMATOCRIT 31.1 % (36-48); HEMOGLOBIN 10.2 g/dL (12.0-16.0); LYMPHOCYTES # (AUTO) 1.8 K/uL (1.0-5.5); LYMPHOCYTES % (AUTO) 10.3 % (20.5-51.5); MEAN CORPUSCULAR HEMOGLOBIN 28 pg (27-31); MEAN CORPUSCULAR HGB CONC 33 % (32-36); MEAN CORPUSCULAR VOLUME 87 fL (79.0-98.0); MONOCYTES # (AUTO) 0.7 K/uL (0.0-1.0); NEUTROPHILS % (AUTO) 84.4 % (40.0-70.0); PLATELET COUNT (AUTO) 205 K/uL (130-430); RED BLOOD CELL COUNT(AUTO) 3.59 MIL/uL (4.2-6.2); RED CELL DISTRIBUTION WIDTH 18.6 % (9.0-15.0); WHITE BLOOD COUNT (AUTO) 17.8 K/uL (4.8-10.8)
[2022-03-26 12:05] LABS: ANION GAP 8 (5-15); CALCIUM 7.9 mg/dL (8.4-11.0); CHLORIDE 106 mmol/L (98-107); CREATININE 2.31 mg/dL (0.55-1.30); GLUCOSE 209 mg/dL (70-99); POTASSIUM 3.3 mmol/L (3.5-5.1); SODIUM SERUM 141 mmol/L (136-145); UREA NITROGEN, BLOOD 37 mg/dL (8-21)
[2022-03-26] MEDS ORDERED: CALC1TAB26 PEG (12:12)
[2022-03-26] MEDS ORDERED: FERR-69 GT (12:12)
[2022-03-26] MEDS ORDERED: DOCU-144 PO (12:12)
[2022-03-26] MEDS ORDERED: DIFLUCAN IVPB (12:12)
[2022-03-26] MEDS ORDERED: FOLI-43 GT (12:12)
[2022-03-26] MEDS ORDERED: LACT1CAP69 PEG (12:12)
[2022-03-26] MEDS ORDERED: BISA-79 PO (12:12)
[2022-03-26] MEDS ORDERED: MOM GT (12:12)
[2022-03-26] MEDS ORDERED: PRO40 PEG (12:12)
[2022-03-26] MEDS ORDERED: SSREG SUBCUT (12:12)
[2022-03-26 12:18] LABS: ALBUMIN 1.8 g/dL (3.4-4.8); ASPARTATE AMINOTRANSFERASE 26 U/L (10-37); TOTAL BILIRUBIN 0.9 mg/dL (0.0-1.0)
[2022-03-26] MEDS ORDERED: ASPIRIN 81 MG TAB.CHEW PO ONE (12:30)
[2022-03-26] MEDS ORDERED: NITROGLYCERIN 1 INCH (GM) OINT. TP ONE (12:30)
[2022-03-26] MEDS ORDERED: FUROSEMIDE 40 MG/4 ML VIAL IVP ONE ×2 (12:30→13:45)
[2022-03-26 12:52] LABS: BILIRUBIN,URINE 1+ (NEGATIVE); BLOOD, URINE 3+ (NEGATIVE); CLARITY/URINE CLOUDY (CLEAR); COLOR,URINE YELLOW (YELLOW); GLUCOSE,URINE 2+ (NEGATIVE); KETONES,URINE NEGATIVE (NEGATIVE); LEUKOCYTE ESTERASE ,URINE 3+ (NEGATIVE); NITRITE, URINE NEGATIVE (NEGATIVE); PROTEIN URINE 3+ (NEGATIVE); UROBILINOGEN,URINE 0.2 (0.2-1.0)
[2022-03-26 12:57] LABS: ALANINE AMINOTRANSFERASE 2 U/L (12-78)
[2022-03-26] MEDS ORDERED: cefTRIAXone 1 GM IVPB PREMIX 50 ML IV ONE (13:00)
[2022-03-26 13:05] LABS: BACTERIA,URINE FEW /HPF (None Seen); RBC,URINE 20-50 /HPF (0-3); WBC,URINE >100 /HPF (0-3); YEAST,URINE Few /HPF (None Seen)
[2022-03-26] MEDS ORDERED: ASPIRIN 81 MG TAB.CHEW ONE (13:44)
[2022-03-26 14:52] VITALS: BP_SYST 140
[2022-03-26] MEDS ORDERED: MILK OF MAGNESIA 30 ML UDC GT PRN (15:30)
[2022-03-26] MEDS ORDERED: DIPHENHYDRAMINE HCL 12.5 MG/5 ML UDC GT PRN (15:30)
[2022-03-26] MEDS ORDERED: LevALBUTEROL HCL 1.25 MG/0.5 ML *CONC.* VIAL.NEB (XOPENEX CONC.) INH PRN (15:30)
[2022-03-26] MEDS ORDERED: GLUCOSE (DEXTROSE) ORAL GEL -Adults PO PRN (15:45)
[2022-03-26] MEDS ORDERED: DEXTROSE 50%-WATER 50 ML DISP.SYRIN IVP PRN (15:45)
[2022-03-26] MEDS ORDERED: D5W 1,000 ML IV PRN (15:45)
[2022-03-26] MEDS ORDERED: LevALBUTEROL HCL 1.25 MG/0.5 ML *CONC.* VIAL.NEB (XOPENEX CONC.) INH ONE ×2 (15:45→19:34)
[2022-03-26] MEDS ORDERED: LORATADINE 10 MG TABLET GT PRN (16:00)
[2022-03-26] MEDS ORDERED: hydrALAZINE HCL 25 MG TABLET GT ONE (16:45)
[2022-03-26] MEDS ORDERED: CITALOPRAM HYDROBROMIDE 20 MG TABLET ONE (17:51)
[2022-03-26] MEDS ORDERED: FLUCONAZOLE 200 mg/ NS 100 mL IVPB IV SCH (18:00)
[2022-03-26] MEDS: CITALOPRAM HYDROBROMIDE 20 MG TABLET GT SCH (18:13)
[2022-03-26] MEDS: FLUCONAZOLE 200 mg/ NS 100 ML IV SCH (18:14)
[2022-03-26 20:11] VITALS: BP_SYST 158
[2022-03-26] MEDS: LevALBUTEROL HCL 1.25 MG/0.5 ML *CONC.* VIAL.NEB (XOPENEX CONC.) INH SCH (20:13)
[2022-03-26 21:00] VITALS: BP_SYST 153
[2022-03-26] MEDS: CEFEPIME 1 GM in D5W 50 ML IV SCH (21:00)
[2022-03-26] MEDS ORDERED: LACTOBACILLUS ACIDOPHILUS PEG SCH (21:00)
[2022-03-26] MEDS ORDERED: NON-FORMULARY MEDICATION (Ferrous Sulfate 325 MG) GT SCH (21:00)
[2022-03-26] MEDS: CALCIUM CARBONATE/VITAMIN D3 1 TAB TABLET GT SCH (21:00)
[2022-03-26] MEDS: DOCUSATE SODIUM 100 MG/10 ML UDC GT SCH (21:30)
[2022-03-26] MEDS: FERROUS SULFATE 300 MG/5 ML UDC GT SCH (21:30)
[2022-03-26] MEDS: FUROSEMIDE 40 MG/4 ML VIAL IVP SCH (21:30)
[2022-03-26] MEDS: hydrALAZINE HCL 25 MG TABLET GT SCH (21:31)
[2022-03-26] MEDS: LACTOBACILLUS RHAMNOSUS GG 1 CAP CAPSULE GT SCH (21:32)
[2022-03-26] MEDS: SIMVASTATIN 40 MG TABLET GT SCH (21:32)
[2022-03-26] MEDS: CARVEDILOL 25 MG TABLET (COREG) GT SCH (21:32)
[2022-03-26] MEDS: ENOXAPARIN SODIUM 30 MG/0.3 ML SYRINGE SUBCUT SCH (21:33)
[2022-03-26 22:00] VITALS: BP_SYST 144
[2022-03-26 23:13] VITALS: BP_SYST 153
[2022-03-27] VITALS (23 sets, daily range): BP systolic 113–156
[2022-03-27] MEDS ORDERED: POTASSIUM CHLORIDE 20 MEQ TAB.PRT.SR PO ONE (05:45)
[2022-03-27 06:42] LABS: BASOPHILS % (AUTO) 0.2 % (0.0-2.0); EOSINOPHILS # (AUTO) 0.2 K/uL (0.0-0.4); EOSINOPHILS % (AUTO) 1.4 % (0.0-4.0); HEMATOCRIT 27.1 % (36-48); HEMOGLOBIN 8.9 g/dL (12.0-16.0); LYMPHOCYTES # (AUTO) 1.9 K/uL (1.0-5.5); LYMPHOCYTES % (AUTO) 14.7 % (20.5-51.5); MEAN CORPUSCULAR HEMOGLOBIN 29 pg (27-31); MEAN CORPUSCULAR HGB CONC 33 % (32-36); MEAN CORPUSCULAR VOLUME 88 fL (79.0-98.0); MONOCYTES # (AUTO) 0.9 K/uL (0.0-1.0); NEUTROPHILS # (AUTO) 9.7 K/uL (1.8-7.7); NEUTROPHILS % (AUTO) 76.7 % (40.0-70.0); PLATELET COUNT (AUTO) 149 K/uL (130-430); RED BLOOD CELL COUNT(AUTO) 3.08 MIL/uL (4.2-6.2); RED CELL DISTRIBUTION WIDTH 18.5 % (9.0-15.0); WHITE BLOOD COUNT (AUTO) 12.7 K/uL (4.8-10.8)
[2022-03-27 06:46] LABS: ANION GAP 9 (5-15); CALCIUM 7.7 mg/dL (8.4-11.0); CHLORIDE 108 mmol/L (98-107); CREATININE 2.29 mg/dL (0.55-1.30); GLUCOSE 189 mg/dL (70-99); SODIUM SERUM 144 mmol/L (136-145); UREA NITROGEN, BLOOD 39 mg/dL (8-21)
[2022-03-27 06:59] LABS: POTASSIUM 2.7 mmol/L (3.5-5.1)
[2022-03-27] MEDS ORDERED: POTASSIUM CHLORIDE 20 MEQ/PKT PACKET PO ONE (07:30)
[2022-03-27] MEDS ORDERED: POTASSIUM CHLORIDE 20 MEQ/PKT PACKET GT ONE (07:30)
[2022-03-27] MEDS ORDERED: KCL 40 mEq in 100 mL (PREMIX) 100 ML IV ONE (08:00)
[2022-03-27 08:10] LABS: POTASSIUM 3.5 mmol/L (3.5-5.1)
[2022-03-27] MEDS: LevALBUTEROL HCL 1.25 MG/0.5 ML *CONC.* VIAL.NEB (XOPENEX CONC.) INH SCH ×3 (08:58→19:29)
[2022-03-27] MEDS ORDERED: BISACODYL 5 MG TABLET.DR (DULCOLAX) PO SCH (09:00)
[2022-03-27] MEDS ORDERED: DIFLUCAN 200 MG IVPB SCH (09:00)
[2022-03-27] MEDS ORDERED: PANTOPRAZOLE SODIUM 40 MG TAB GT SCH (09:00)
[2022-03-27] MEDS: CALCIUM CARBONATE/VITAMIN D3 1 TAB TABLET GT SCH ×2 (09:00→20:57)
[2022-03-27] MEDS: LANSOPRAZOLE 30 MG CAPSULE.DR GT SCH (09:05)
[2022-03-27] MEDS: FOLIC ACID 1 MG TABLET GT SCH (09:07)
[2022-03-27] MEDS: DOCUSATE SODIUM 100 MG/10 ML UDC GT SCH ×2 (09:07→20:58)
[2022-03-27] MEDS: FERROUS SULFATE 300 MG/5 ML UDC GT SCH ×2 (09:08→20:59)
[2022-03-27] MEDS: LACTOBACILLUS RHAMNOSUS GG 1 CAP CAPSULE GT SCH ×2 (09:08→20:56)
[2022-03-27] MEDS: CARVEDILOL 25 MG TABLET (COREG) GT SCH ×2 (09:09→20:55)
[2022-03-27] MEDS: FUROSEMIDE 40 MG/4 ML VIAL IVP SCH ×2 (09:10→20:59)
[2022-03-27] MEDS: CEFEPIME 1 GM in D5W 50 ML IV SCH ×2 (09:57→21:00)
[2022-03-27] MEDS: hydrALAZINE HCL 25 MG TABLET GT SCH ×2 (14:21→20:56)
[2022-03-27] MEDS: CITALOPRAM HYDROBROMIDE 20 MG TABLET GT SCH (17:37)
[2022-03-27] MEDS: FLUCONAZOLE 200 mg/ NS 100 ML IV SCH (17:37)
[2022-03-27] MEDS: SIMVASTATIN 40 MG TABLET GT SCH (20:57)
[2022-03-27] MEDS ORDERED: POTASSIUM CHLORIDE 20 MEQ TAB.PRT.SR PO SCH (21:00)
[2022-03-27] MEDS: ONDANSETRON HCL 4 MG/2 ML VIAL IVP PRN (21:01)
[2022-03-27] MEDS: INSULIN REGULAR, HUMAN 100 UNITS/ML, 10 ML VIAL (humuLIN R) SUBCUT PRN (21:03)
[2022-03-27] MEDS: ENOXAPARIN SODIUM 30 MG/0.3 ML SYRINGE SUBCUT SCH (21:05)
[2022-03-27] MEDS: POTASSIUM CHLORIDE 20 MEQ/PKT PACKET PO SCH (21:31)
[2022-03-28] VITALS (24 sets, daily range): BP systolic 102–145
[2022-03-28] MEDS: INSULIN REGULAR, HUMAN 100 UNITS/ML, 10 ML VIAL (humuLIN R) SUBCUT PRN ×4 (00:27→19:03)
[2022-03-28] MEDS: LevALBUTEROL HCL 1.25 MG/0.5 ML *CONC.* VIAL.NEB (XOPENEX CONC.) INH SCH ×4 (04:33→19:38)
[2022-03-28] MEDS: LANSOPRAZOLE 30 MG CAPSULE.DR GT SCH (06:09)
[2022-03-28 06:32] LABS: BASOPHILS % (AUTO) 0.3 % (0.0-2.0); EOSINOPHILS # (AUTO) 0.3 K/uL (0.0-0.4); EOSINOPHILS % (AUTO) 1.9 % (0.0-4.0); HEMATOCRIT 25.2 % (36-48); HEMOGLOBIN 8.3 g/dL (12.0-16.0); LYMPHOCYTES # (AUTO) 2.2 K/uL (1.0-5.5); LYMPHOCYTES % (AUTO) 14.9 % (20.5-51.5); MEAN CORPUSCULAR HEMOGLOBIN 29 pg (27-31); MEAN CORPUSCULAR HGB CONC 33 % (32-36); MEAN CORPUSCULAR VOLUME 87 fL (79.0-98.0); MONOCYTES % (AUTO) 6.9 % (1.7-9.3); NEUTROPHILS # (AUTO) 11.3 K/uL (1.8-7.7); PLATELET COUNT (AUTO) 159 K/uL (130-430); RED BLOOD CELL COUNT(AUTO) 2.89 MIL/uL (4.2-6.2); RED CELL DISTRIBUTION WIDTH 19.3 % (9.0-15.0); WHITE BLOOD COUNT (AUTO) 14.8 K/uL (4.8-10.8)
[2022-03-28 07:33] LABS: ANION GAP 8 (5-15); CALCIUM 7.8 mg/dL (8.4-11.0); CHLORIDE 105 mmol/L (98-107); CREATININE 2.32 mg/dL (0.55-1.30); GLUCOSE 217 mg/dL (70-99); POTASSIUM 4.2 mmol/L (3.5-5.1); SODIUM SERUM 138 mmol/L (136-145); UREA NITROGEN, BLOOD 41 mg/dL (8-21)
[2022-03-28 07:48] LABS: ALANINE AMINOTRANSFERASE 3 U/L (12-78); ALBUMIN 1.7 g/dL (3.4-4.8); ASPARTATE AMINOTRANSFERASE 20 U/L (10-37); LIPASE 206 U/L (73-393); THYROID STIMULATING HORMONE 1.79 uIu/mL (0.36-3.74); TOTAL BILIRUBIN 0.6 mg/dL (0.0-1.0)
[2022-03-28] MEDS: POTASSIUM CHLORIDE 20 MEQ/PKT PACKET PO SCH ×2 (08:26→21:13)
[2022-03-28] MEDS: CALCIUM CARBONATE/VITAMIN D3 1 TAB TABLET GT SCH ×2 (08:27→21:17)
[2022-03-28] MEDS: DOCUSATE SODIUM 100 MG/10 ML UDC GT SCH ×2 (08:27→21:00)
[2022-03-28] MEDS: CARVEDILOL 25 MG TABLET (COREG) GT SCH ×2 (08:28→21:16)
[2022-03-28] MEDS: hydrALAZINE HCL 25 MG TABLET GT SCH ×2 (08:28→21:14)
[2022-03-28] MEDS: LACTOBACILLUS RHAMNOSUS GG 1 CAP CAPSULE GT SCH ×2 (08:28→21:23)
[2022-03-28] MEDS: FOLIC ACID 1 MG TABLET GT SCH (08:28)
[2022-03-28] MEDS: FERROUS SULFATE 300 MG/5 ML UDC GT SCH ×2 (08:28→21:13)
[2022-03-28] MEDS: FUROSEMIDE 40 MG/4 ML VIAL IVP SCH ×2 (08:29→21:15)
[2022-03-28] MEDS: CEFEPIME 1 GM in D5W 50 ML IV SCH (08:29)
[2022-03-28 08:37] LABS: CHOLESTEROL 61 mg/dL (<200); HDL CHOLESTEROL 19 mg/dL (>55); LDL CHOLESTEROL 31 mg/dL (<100); TRIGLYCERIDES 113 mg/dL (30-150)
[2022-03-28] MEDS ORDERED: MAGNESIUM SULFATE 50 ML IV ONE (09:15)
[2022-03-28] MEDS: PIPERACILLIN/TAZO 2.25G/DEX-IS 50 ML IV SCH ×2 (14:04→21:23)
[2022-03-28] MEDS ORDERED: GASTROGRAFIN 120 ML ONE (16:54)
[2022-03-28] MEDS: FLUCONAZOLE 200 mg/ NS 100 ML IV SCH (17:43)
[2022-03-28] MEDS: CITALOPRAM HYDROBROMIDE 20 MG TABLET GT SCH (17:44)
[2022-03-28] MEDS: metroNIDAZOLE 500 MG TABLET GT SCH (21:12)
[2022-03-28] MEDS: ENOXAPARIN SODIUM 30 MG/0.3 ML SYRINGE SUBCUT SCH (21:19)
[2022-03-28] MEDS: SIMVASTATIN 40 MG TABLET GT SCH (21:24)
[2022-03-29] VITALS (13 sets, daily range): BP systolic 107–133
[2022-03-29] MEDS: INSULIN REGULAR, HUMAN 100 UNITS/ML, 10 ML VIAL (humuLIN R) SUBCUT PRN ×4 (00:25→17:12)
[2022-03-29] MEDS: LevALBUTEROL HCL 1.25 MG/0.5 ML *CONC.* VIAL.NEB (XOPENEX CONC.) INH SCH ×2 (02:13→07:53)
[2022-03-29 05:48] LABS: BASOPHILS # (AUTO) 0.1 K/uL (0.0-0.2); BASOPHILS % (AUTO) 0.5 % (0.0-2.0); EOSINOPHILS # (AUTO) 0.5 K/uL (0.0-0.4); EOSINOPHILS % (AUTO) 2.5 % (0.0-4.0); HEMOGLOBIN 8.5 g/dL (12.0-16.0); LYMPHOCYTES # (AUTO) 2.1 K/uL (1.0-5.5); LYMPHOCYTES % (AUTO) 10.7 % (20.5-51.5); MEAN CORPUSCULAR HEMOGLOBIN 29 pg (27-31); MEAN CORPUSCULAR HGB CONC 33 % (32-36); MEAN CORPUSCULAR VOLUME 89 fL (79.0-98.0); MONOCYTES # (AUTO) 1.2 K/uL (0.0-1.0); MONOCYTES % (AUTO) 5.9 % (1.7-9.3); NEUTROPHILS # (AUTO) 16.1 K/uL (1.8-7.7); NEUTROPHILS % (AUTO) 80.4 % (40.0-70.0); PLATELET COUNT (AUTO) 186 K/uL (130-430); RED BLOOD CELL COUNT(AUTO) 2.92 MIL/uL (4.2-6.2); RED CELL DISTRIBUTION WIDTH 19.9 % (9.0-15.0)
[2022-03-29 06:01] LABS: ALANINE AMINOTRANSFERASE 8 U/L (12-78); ALBUMIN 1.6 g/dL (3.4-4.8); ASPARTATE AMINOTRANSFERASE 18 U/L (10-37); CALCIUM 7.7 mg/dL (8.4-11.0); CREATININE 2.41 mg/dL (0.55-1.30); GLUCOSE 146 mg/dL (70-99); TOTAL BILIRUBIN 0.3 mg/dL (0.0-1.0); UREA NITROGEN, BLOOD 42 mg/dL (8-21)
[2022-03-29] MEDS: metroNIDAZOLE 500 MG TABLET GT SCH (06:11)
[2022-03-29] MEDS: PIPERACILLIN/TAZO 2.25G/DEX-IS 50 ML IV SCH ×3 (06:18→22:29)
[2022-03-29] MEDS: LANSOPRAZOLE 30 MG CAPSULE.DR GT SCH (06:19)
[2022-03-29 06:25] LABS: ANION GAP 8 (5-15); CHLORIDE 104 mmol/L (98-107); POTASSIUM 4.6 mmol/L (3.5-5.1); SODIUM SERUM 138 mmol/L (136-145)
[2022-03-29] MEDS: FUROSEMIDE 40 MG/4 ML VIAL IVP SCH ×2 (08:24→22:29)
[2022-03-29] MEDS: FERROUS SULFATE 300 MG/5 ML UDC GT SCH ×2 (10:34→22:25)
[2022-03-29] MEDS: POTASSIUM CHLORIDE 20 MEQ/PKT PACKET PO SCH ×2 (10:34→22:51)
[2022-03-29] MEDS: DOCUSATE SODIUM 100 MG/10 ML UDC GT SCH ×2 (10:34→22:25)
[2022-03-29] MEDS: CARVEDILOL 25 MG TABLET (COREG) GT SCH ×2 (10:35→22:27)
[2022-03-29] MEDS: CALCIUM CARBONATE/VITAMIN D3 1 TAB TABLET GT SCH ×2 (10:36→22:25)
[2022-03-29] MEDS: FOLIC ACID 1 MG TABLET GT SCH (10:36)
[2022-03-29] MEDS: LACTOBACILLUS RHAMNOSUS GG 1 CAP CAPSULE GT SCH ×2 (10:36→22:26)
[2022-03-29] MEDS: hydrALAZINE HCL 25 MG TABLET GT SCH ×2 (10:37→22:28)
[2022-03-29] MEDS: CITALOPRAM HYDROBROMIDE 20 MG TABLET GT SCH (17:26)
[2022-03-29] MEDS: VANCOMYCIN HCL ORAL SOLUTION 250 MG/5 ML, 80 ML PO SCH ×3 (17:30→22:31)
[2022-03-29] MEDS: FLUCONAZOLE 200 mg/ NS 100 ML IV SCH (18:16)
[2022-03-29] MEDS ORDERED: LACTOBACILLUS RHAMNOSUS GG 1 CAP CAPSULE PO SCH (21:00)
[2022-03-29] MEDS: ENOXAPARIN SODIUM 30 MG/0.3 ML SYRINGE SUBCUT SCH (22:37)
[2022-03-29] MEDS: SIMVASTATIN 40 MG TABLET GT SCH (22:51)
[2022-03-30] MEDS: INSULIN REGULAR, HUMAN 100 UNITS/ML, 10 ML VIAL (humuLIN R) SUBCUT PRN ×2 (00:04→12:31)
[2022-03-30 00:08] VITALS: BP_SYST 126
[2022-03-30] MEDS: LevALBUTEROL HCL 1.25 MG/0.5 ML *CONC.* VIAL.NEB (XOPENEX CONC.) INH SCH ×4 (00:37→20:00)
[2022-03-30 06:49] LABS: BASOPHILS % (AUTO) 0.3 % (0.0-2.0); EOSINOPHILS # (AUTO) 0.4 K/uL (0.0-0.4); EOSINOPHILS % (AUTO) 2.9 % (0.0-4.0); HEMATOCRIT 26.7 % (36-48); HEMOGLOBIN 8.8 g/dL (12.0-16.0); LYMPHOCYTES % (AUTO) 13.6 % (20.5-51.5); MEAN CORPUSCULAR HEMOGLOBIN 29 pg (27-31); MEAN CORPUSCULAR HGB CONC 33 % (32-36); MEAN CORPUSCULAR VOLUME 89 fL (79.0-98.0); MONOCYTES # (AUTO) 0.9 K/uL (0.0-1.0); MONOCYTES % (AUTO) 6.1 % (1.7-9.3); NEUTROPHILS # (AUTO) 11.4 K/uL (1.8-7.7); NEUTROPHILS % (AUTO) 77.1 % (40.0-70.0); PLATELET COUNT (AUTO) 194 K/uL (130-430); RED BLOOD CELL COUNT(AUTO) 3.02 MIL/uL (4.2-6.2); RED CELL DISTRIBUTION WIDTH 20.3 % (9.0-15.0); WHITE BLOOD COUNT (AUTO) 14.8 K/uL (4.8-10.8)
[2022-03-30] MEDS: PIPERACILLIN/TAZO 2.25G/DEX-IS 50 ML IV SCH (06:56)
[2022-03-30 07:13] LABS: ALANINE AMINOTRANSFERASE 6 U/L (12-78); ALBUMIN 1.7 g/dL (3.4-4.8); ANION GAP 9 (5-15); ASPARTATE AMINOTRANSFERASE 14 U/L (10-37); CALCIUM 8.3 mg/dL (8.4-11.0); CHLORIDE 105 mmol/L (98-107); CREATININE 2.59 mg/dL (0.55-1.30); GLUCOSE 127 mg/dL (70-99); POTASSIUM 4.7 mmol/L (3.5-5.1); SODIUM SERUM 139 mmol/L (136-145); TOTAL BILIRUBIN 0.4 mg/dL (0.0-1.0); UREA NITROGEN, BLOOD 41 mg/dL (8-21)
[2022-03-30 08:00] VITALS: BP_SYST 140
[2022-03-30] MEDS: hydrALAZINE HCL 25 MG TABLET GT SCH ×2 (08:16→22:19)
[2022-03-30] MEDS: CALCIUM CARBONATE/VITAMIN D3 1 TAB TABLET GT SCH ×2 (08:16→22:21)
[2022-03-30] MEDS: CARVEDILOL 25 MG TABLET (COREG) GT SCH ×2 (08:17→22:22)
[2022-03-30] MEDS: POTASSIUM CHLORIDE 20 MEQ/PKT PACKET PO SCH ×2 (08:17→22:20)
[2022-03-30] MEDS: LANSOPRAZOLE 30 MG CAPSULE.DR GT SCH (08:18)
[2022-03-30] MEDS: LACTOBACILLUS RHAMNOSUS GG 1 CAP CAPSULE GT SCH ×2 (08:18→22:21)
[2022-03-30] MEDS: FERROUS SULFATE 300 MG/5 ML UDC GT SCH ×2 (08:18→22:18)
[2022-03-30] MEDS: FOLIC ACID 1 MG TABLET GT SCH (08:18)
[2022-03-30] MEDS: VANCOMYCIN HCL ORAL SOLUTION 250 MG/5 ML, 80 ML PO SCH ×4 (08:19→22:18)
[2022-03-30] MEDS: DOCUSATE SODIUM 100 MG/10 ML UDC GT SCH ×2 (08:20→22:18)
[2022-03-30] MEDS: FUROSEMIDE 40 MG/4 ML VIAL IVP SCH ×2 (10:09→22:23)
[2022-03-30 11:28] VITALS: BP_SYST 137
[2022-03-30 15:35] VITALS: BP_SYST 127
[2022-03-30] MEDS: CITALOPRAM HYDROBROMIDE 20 MG TABLET GT SCH (17:15)
[2022-03-30] MEDS: FLUCONAZOLE 200 mg/ NS 100 ML IV SCH (18:18)
[2022-03-30 20:00] VITALS: BP_SYST 146
[2022-03-30] MEDS: SIMVASTATIN 40 MG TABLET GT SCH (22:22)
[2022-03-30] MEDS: ENOXAPARIN SODIUM 30 MG/0.3 ML SYRINGE SUBCUT SCH (22:25)
[2022-03-31] VITALS: BP_SYST 138
[2022-03-31] MEDS: INSULIN REGULAR, HUMAN 100 UNITS/ML, 10 ML VIAL (humuLIN R) SUBCUT PRN ×4 (00:01→18:57)
[2022-03-31] MEDS: LevALBUTEROL HCL 1.25 MG/0.5 ML *CONC.* VIAL.NEB (XOPENEX CONC.) INH SCH ×4 (01:11→19:55)
[2022-03-31 03:58] VITALS: BP_SYST 126
[2022-03-31 04:00] VITALS: BP_SYST 126
[2022-03-31] MEDS: LANSOPRAZOLE 30 MG CAPSULE.DR GT SCH (06:32)
[2022-03-31 08:10] VITALS: BP_SYST 145
[2022-03-31] MEDS: DOCUSATE SODIUM 100 MG/10 ML UDC GT SCH ×2 (09:00→21:50)
[2022-03-31] MEDS: LACTOBACILLUS RHAMNOSUS GG 1 CAP CAPSULE GT SCH ×2 (09:31→21:53)
[2022-03-31] MEDS: FERROUS SULFATE 300 MG/5 ML UDC GT SCH ×2 (09:31→21:47)
[2022-03-31] MEDS: FOLIC ACID 1 MG TABLET GT SCH (09:32)
[2022-03-31] MEDS: POTASSIUM CHLORIDE 20 MEQ/PKT PACKET PO SCH ×2 (09:32→21:53)
[2022-03-31] MEDS: hydrALAZINE HCL 25 MG TABLET GT SCH ×2 (09:33→21:53)
[2022-03-31] MEDS: FUROSEMIDE 40 MG/4 ML VIAL IVP SCH ×2 (09:34→21:54)
[2022-03-31] MEDS: CARVEDILOL 25 MG TABLET (COREG) GT SCH ×2 (09:34→21:50)
[2022-03-31] MEDS: CALCIUM CARBONATE/VITAMIN D3 1 TAB TABLET GT SCH ×2 (09:35→21:51)
[2022-03-31] MEDS: VANCOMYCIN HCL ORAL SOLUTION 250 MG/5 ML, 80 ML PO SCH ×4 (09:35→21:55)
[2022-03-31 11:34] VITALS: BP_SYST 149
[2022-03-31 15:34] VITALS: BP_SYST 131
[2022-03-31] MEDS: CITALOPRAM HYDROBROMIDE 20 MG TABLET GT SCH (18:52)
[2022-03-31] MEDS: FLUCONAZOLE 200 mg/ NS 100 ML IV SCH (18:53)
[2022-03-31] MEDS: SIMVASTATIN 40 MG TABLET GT SCH (21:50)
[2022-03-31] MEDS: ENOXAPARIN SODIUM 30 MG/0.3 ML SYRINGE SUBCUT SCH (21:52)
[2022-04-01 00:35] VITALS: BP_SYST 147
[2022-04-01] MEDS: INSULIN REGULAR, HUMAN 100 UNITS/ML, 10 ML VIAL (humuLIN R) SUBCUT PRN ×4 (00:46→17:34)
[2022-04-01] MEDS: LevALBUTEROL HCL 1.25 MG/0.5 ML *CONC.* VIAL.NEB (XOPENEX CONC.) INH SCH ×4 (02:43→23:51)
[2022-04-01 04:00] VITALS: BP_SYST 144
[2022-04-01] MEDS: LANSOPRAZOLE 30 MG CAPSULE.DR GT SCH (07:46)
[2022-04-01 08:00] VITALS: BP_SYST 152
[2022-04-01 08:27] VITALS: BP_SYST 152
[2022-04-01] MEDS: NYSTATIN 30 GM TOPICAL CREAM TP SCH ×2 (09:00→21:25)
[2022-04-01 09:02] LABS: ALANINE AMINOTRANSFERASE 8 U/L (12-78); ALBUMIN 2.2 g/dL (3.4-4.8); ANION GAP 13 (5-15); ASPARTATE AMINOTRANSFERASE 15 U/L (10-37); CALCIUM 9.3 mg/dL (8.4-11.0); CHLORIDE 108 mmol/L (98-107); CREATININE 2.85 mg/dL (0.55-1.30); GLUCOSE 207 mg/dL (70-99); POTASSIUM 5.4 mmol/L (3.5-5.1); SODIUM SERUM 143 mmol/L (136-145); TOTAL BILIRUBIN 0.3 mg/dL (0.0-1.0); UREA NITROGEN, BLOOD 51 mg/dL (8-21)
[2022-04-01] MEDS: FUROSEMIDE 40 MG/4 ML VIAL IVP SCH (09:03)
[2022-04-01] MEDS: DOCUSATE SODIUM 100 MG/10 ML UDC GT SCH ×2 (09:03→21:14)
[2022-04-01] MEDS: FERROUS SULFATE 300 MG/5 ML UDC GT SCH ×2 (09:03→21:14)
[2022-04-01] MEDS: CARVEDILOL 25 MG TABLET (COREG) GT SCH ×2 (09:04→21:24)
[2022-04-01] MEDS: FOLIC ACID 1 MG TABLET GT SCH (09:04)
[2022-04-01] MEDS: POTASSIUM CHLORIDE 20 MEQ/PKT PACKET PO SCH (09:05)
[2022-04-01] MEDS: hydrALAZINE HCL 25 MG TABLET GT SCH ×2 (09:05→21:24)
[2022-04-01] MEDS: CALCIUM CARBONATE/VITAMIN D3 1 TAB TABLET GT SCH ×2 (09:05→21:25)
[2022-04-01] MEDS: VANCOMYCIN HCL ORAL SOLUTION 250 MG/5 ML, 80 ML PO SCH ×4 (09:05→21:25)
[2022-04-01] MEDS: LACTOBACILLUS RHAMNOSUS GG 1 CAP CAPSULE GT SCH ×2 (09:11→21:14)
[2022-04-01 10:21] LABS: BASOPHILS # (AUTO) 0.1 K/uL (0.0-0.2); BASOPHILS % (AUTO) 0.3 % (0.0-2.0); EOSINOPHILS # (AUTO) 0.1 K/uL (0.0-0.4); EOSINOPHILS % (AUTO) 0.8 % (0.0-4.0); LYMPHOCYTES # (AUTO) 2.8 K/uL (1.0-5.5); LYMPHOCYTES % (AUTO) 16.1 % (20.5-51.5); MEAN CORPUSCULAR HEMOGLOBIN 29 pg (27-31); MEAN CORPUSCULAR HGB CONC 32 % (32-36); MEAN CORPUSCULAR VOLUME 90 fL (79.0-98.0); MONOCYTES # (AUTO) 1.1 K/uL (0.0-1.0); MONOCYTES % (AUTO) 6.2 % (1.7-9.3); NEUTROPHILS # (AUTO) 13.3 K/uL (1.8-7.7); NEUTROPHILS % (AUTO) 76.6 % (40.0-70.0); PLATELET COUNT (AUTO) 303 K/uL (130-430); RED BLOOD CELL COUNT(AUTO) 3.68 MIL/uL (4.2-6.2); RED CELL DISTRIBUTION WIDTH 21.6 % (9.0-15.0); WHITE BLOOD COUNT (AUTO) 17.4 K/uL (4.8-10.8)
[2022-04-01 10:28] LABS: HEMOGLOBIN 10.7 g/dL (12.0-16.0)
[2022-04-01 11:29] VITALS: BP_SYST 143
[2022-04-01] MEDS: NACL 0.9% 1,000 ML IV SCH (15:30)
[2022-04-01 15:54] VITALS: BP_SYST 133
[2022-04-01] MEDS: FLUCONAZOLE 200 mg/ NS 100 ML IV SCH (17:28)
[2022-04-01] MEDS: CITALOPRAM HYDROBROMIDE 20 MG TABLET GT SCH (17:28)
[2022-04-01] MEDS: ENOXAPARIN SODIUM 30 MG/0.3 ML SYRINGE SUBCUT SCH (21:13)
[2022-04-01] MEDS: SIMVASTATIN 40 MG TABLET GT SCH (21:25)
[2022-04-02] MEDS: INSULIN REGULAR, HUMAN 100 UNITS/ML, 10 ML VIAL (humuLIN R) SUBCUT PRN ×4 (01:08→17:45)
[2022-04-02] MEDS: NACL 0.9% 1,000 ML IV SCH ×3 (01:09→20:29)
[2022-04-02] MEDS: LevALBUTEROL HCL 1.25 MG/0.5 ML *CONC.* VIAL.NEB (XOPENEX CONC.) INH SCH ×4 (03:07→19:40)
[2022-04-02 04:23] VITALS: BP_SYST 145
[2022-04-02] MEDS: LANSOPRAZOLE 30 MG CAPSULE.DR GT SCH (06:18)
[2022-04-02 07:35] LABS: BASOPHILS # (AUTO) 0.1 K/uL (0.0-0.2); BASOPHILS % (AUTO) 0.4 % (0.0-2.0); EOSINOPHILS # (AUTO) 0.1 K/uL (0.0-0.4); EOSINOPHILS % (AUTO) 0.6 % (0.0-4.0); HEMATOCRIT 31.6 % (36-48); HEMOGLOBIN 10.1 g/dL (12.0-16.0); LYMPHOCYTES # (AUTO) 2.8 K/uL (1.0-5.5); MEAN CORPUSCULAR HEMOGLOBIN 29 pg (27-31); MEAN CORPUSCULAR HGB CONC 32 % (32-36); MEAN CORPUSCULAR VOLUME 91 fL (79.0-98.0); MONOCYTES # (AUTO) 1.3 K/uL (0.0-1.0); MONOCYTES % (AUTO) 7.4 % (1.7-9.3); NEUTROPHILS # (AUTO) 13.3 K/uL (1.8-7.7); NEUTROPHILS % (AUTO) 75.6 % (40.0-70.0); PLATELET COUNT (AUTO) 309 K/uL (130-430); RED BLOOD CELL COUNT(AUTO) 3.46 MIL/uL (4.2-6.2); RED CELL DISTRIBUTION WIDTH 23.5 % (9.0-15.0); WHITE BLOOD COUNT (AUTO) 17.6 K/uL (4.8-10.8)
[2022-04-02 08:02] LABS: ALANINE AMINOTRANSFERASE 3 U/L (12-78); ALBUMIN 2.2 g/dL (3.4-4.8); ANION GAP 10 (5-15); ASPARTATE AMINOTRANSFERASE 19 U/L (10-37); CALCIUM 8.9 mg/dL (8.4-11.0); CHLORIDE 112 mmol/L (98-107); CREATININE 2.81 mg/dL (0.55-1.30); GLUCOSE 212 mg/dL (70-99); SODIUM SERUM 145 mmol/L (136-145); TOTAL BILIRUBIN 0.3 mg/dL (0.0-1.0); UREA NITROGEN, BLOOD 58 mg/dL (8-21)
[2022-04-02] MEDS: DOCUSATE SODIUM 100 MG/10 ML UDC GT SCH ×2 (09:20→20:25)
[2022-04-02] MEDS: FERROUS SULFATE 300 MG/5 ML UDC GT SCH ×2 (09:20→20:25)
[2022-04-02] MEDS: CARVEDILOL 25 MG TABLET (COREG) GT SCH ×2 (09:25→20:26)
[2022-04-02] MEDS: hydrALAZINE HCL 25 MG TABLET GT SCH ×2 (09:27→20:25)
[2022-04-02] MEDS: LACTOBACILLUS RHAMNOSUS GG 1 CAP CAPSULE GT SCH ×2 (09:27→20:30)
[2022-04-02] MEDS: VANCOMYCIN HCL ORAL SOLUTION 250 MG/5 ML, 80 ML PO SCH ×4 (09:28→20:29)
[2022-04-02] MEDS: CALCIUM CARBONATE/VITAMIN D3 1 TAB TABLET GT SCH ×2 (09:28→20:26)
[2022-04-02] MEDS: FOLIC ACID 1 MG TABLET GT SCH (09:28)
[2022-04-02] MEDS: NYSTATIN 30 GM TOPICAL CREAM TP SCH ×2 (09:29→20:31)
[2022-04-02 11:29] VITALS: BP_SYST 141
[2022-04-02] MEDS: metroNIDAZOLE 250 mg/NS 50 ML IV SCH ×2 (13:32→21:36)
[2022-04-02 16:04] VITALS: BP_SYST 156
[2022-04-02] MEDS: CITALOPRAM HYDROBROMIDE 20 MG TABLET GT SCH (17:40)
[2022-04-02] MEDS: FLUCONAZOLE 200 mg/ NS 100 ML IV SCH (17:40)
[2022-04-02] MEDS: SIMVASTATIN 40 MG TABLET GT SCH (20:26)
[2022-04-02] MEDS: ENOXAPARIN SODIUM 30 MG/0.3 ML SYRINGE SUBCUT SCH (20:28)
[2022-04-03] MEDS: INSULIN REGULAR, HUMAN 100 UNITS/ML, 10 ML VIAL (humuLIN R) SUBCUT PRN ×4 (00:12→18:28)
[2022-04-03 01:10] VITALS: BP_SYST 149
[2022-04-03] MEDS: LevALBUTEROL HCL 1.25 MG/0.5 ML *CONC.* VIAL.NEB (XOPENEX CONC.) INH SCH ×3 (01:43→13:28)
[2022-04-03] MEDS: metroNIDAZOLE 250 mg/NS 50 ML IV SCH ×3 (06:19→22:35)
[2022-04-03] MEDS: ONDANSETRON HCL 4 MG/2 ML VIAL IVP PRN (06:21)
[2022-04-03] MEDS: NACL 0.9% 1,000 ML IV SCH ×2 (07:00→17:00)
[2022-04-03 07:02] LABS: BASOPHILS # (AUTO) 0.1 K/uL (0.0-0.2); BASOPHILS % (AUTO) 0.4 % (0.0-2.0); EOSINOPHILS # (AUTO) 0.2 K/uL (0.0-0.4); HEMATOCRIT 29.2 % (36-48); HEMOGLOBIN 9.3 g/dL (12.0-16.0); LYMPHOCYTES # (AUTO) 2.7 K/uL (1.0-5.5); LYMPHOCYTES % (AUTO) 16.9 % (20.5-51.5); MEAN CORPUSCULAR HEMOGLOBIN 29 pg (27-31); MEAN CORPUSCULAR HGB CONC 32 % (32-36); MEAN CORPUSCULAR VOLUME 92 fL (79.0-98.0); MONOCYTES # (AUTO) 1.4 K/uL (0.0-1.0); MONOCYTES % (AUTO) 8.5 % (1.7-9.3); NEUTROPHILS # (AUTO) 11.6 K/uL (1.8-7.7); NEUTROPHILS % (AUTO) 73.2 % (40.0-70.0); PLATELET COUNT (AUTO) 316 K/uL (130-430); RED BLOOD CELL COUNT(AUTO) 3.18 MIL/uL (4.2-6.2); RED CELL DISTRIBUTION WIDTH 22.6 % (9.0-15.0); WHITE BLOOD COUNT (AUTO) 15.9 K/uL (4.8-10.8)
[2022-04-03 07:22] LABS: ANION GAP 10 (5-15); CALCIUM 8.2 mg/dL (8.4-11.0); CHLORIDE 116 mmol/L (98-107); CREATININE 2.38 mg/dL (0.55-1.30); GLUCOSE 187 mg/dL (70-99); POTASSIUM 4.4 mmol/L (3.5-5.1); SODIUM SERUM 147 mmol/L (136-145); UREA NITROGEN, BLOOD 54 mg/dL (8-21)
[2022-04-03 08:12] VITALS: BP_SYST 149
[2022-04-03] MEDS: DOCUSATE SODIUM 100 MG/10 ML UDC GT SCH ×2 (10:50→21:49)
[2022-04-03] MEDS: FERROUS SULFATE 300 MG/5 ML UDC GT SCH ×2 (10:50→21:49)
[2022-04-03] MEDS: LANSOPRAZOLE 30 MG CAPSULE.DR GT SCH (10:53)
[2022-04-03] MEDS: hydrALAZINE HCL 25 MG TABLET GT SCH ×2 (10:53→21:52)
[2022-04-03] MEDS: LACTOBACILLUS RHAMNOSUS GG 1 CAP CAPSULE GT SCH ×2 (10:53→21:50)
[2022-04-03] MEDS: ACETAMINOPHEN 325 MG TABLET GT PRN (10:54)
[2022-04-03] MEDS: FOLIC ACID 1 MG TABLET GT SCH (10:55)
[2022-04-03] MEDS: CARVEDILOL 25 MG TABLET (COREG) GT SCH ×2 (10:55→21:50)
[2022-04-03] MEDS: CALCIUM CARBONATE/VITAMIN D3 1 TAB TABLET GT SCH ×2 (10:56→21:50)
[2022-04-03] MEDS: NYSTATIN 30 GM TOPICAL CREAM TP SCH ×2 (10:57→21:49)
[2022-04-03] MEDS: VANCOMYCIN HCL ORAL SOLUTION 250 MG/5 ML, 80 ML PO SCH ×4 (10:58→21:56)
[2022-04-03 11:24] VITALS: BP_SYST 151
[2022-04-03 15:35] VITALS: BP_SYST 141
[2022-04-03] MEDS: FLUCONAZOLE 200 mg/ NS 100 ML IV SCH (18:28)
[2022-04-03] MEDS: CITALOPRAM HYDROBROMIDE 20 MG TABLET GT SCH (18:28)
[2022-04-03 20:00] VITALS: BP_SYST 160
[2022-04-03] MEDS: SIMVASTATIN 40 MG TABLET GT SCH (21:49)
[2022-04-03] MEDS: ENOXAPARIN SODIUM 30 MG/0.3 ML SYRINGE SUBCUT SCH (21:55)
[2022-04-04] VITALS: BP_SYST 133
[2022-04-04] MEDS: INSULIN REGULAR, HUMAN 100 UNITS/ML, 10 ML VIAL (humuLIN R) SUBCUT PRN ×4 (00:10→18:40)
[2022-04-04] MEDS: LevALBUTEROL HCL 1.25 MG/0.5 ML *CONC.* VIAL.NEB (XOPENEX CONC.) INH SCH ×4 (01:00→13:41)
[2022-04-04 01:15] VITALS: BP_SYST 133
[2022-04-04] MEDS: NACL 0.9% 1,000 ML IV SCH ×2 (02:49→13:00)
[2022-04-04 04:10] VITALS: BP_SYST 150
[2022-04-04] MEDS: metroNIDAZOLE 250 mg/NS 50 ML IV SCH ×3 (05:35→21:57)
[2022-04-04] MEDS: LANSOPRAZOLE 30 MG CAPSULE.DR GT SCH (06:07)
[2022-04-04 07:24] LABS: ANION GAP 11 (5-15); CALCIUM 8.2 mg/dL (8.4-11.0); CHLORIDE 119 mmol/L (98-107); CREATININE 2.13 mg/dL (0.55-1.30); GLUCOSE 175 mg/dL (70-99); POTASSIUM 4.2 mmol/L (3.5-5.1); SODIUM SERUM 150 mmol/L (136-145); UREA NITROGEN, BLOOD 52 mg/dL (8-21)
[2022-04-04] MEDS: ONDANSETRON HCL 4 MG/2 ML VIAL IVP PRN (07:34)
[2022-04-04 08:10] LABS: BASOPHILS # (AUTO) 0.1 K/uL (0.0-0.2); BASOPHILS % (AUTO) 0.6 % (0.0-2.0); EOSINOPHILS # (AUTO) 0.2 K/uL (0.0-0.4); EOSINOPHILS % (AUTO) 1.4 % (0.0-4.0); HEMATOCRIT 28.8 % (36-48); HEMOGLOBIN 9.2 g/dL (12.0-16.0); LYMPHOCYTES # (AUTO) 2.4 K/uL (1.0-5.5); LYMPHOCYTES % (AUTO) 17.9 % (20.5-51.5); MEAN CORPUSCULAR HEMOGLOBIN 30 pg (27-31); MEAN CORPUSCULAR HGB CONC 32 % (32-36); MEAN CORPUSCULAR VOLUME 92 fL (79.0-98.0); MONOCYTES # (AUTO) 0.9 K/uL (0.0-1.0); MONOCYTES % (AUTO) 6.6 % (1.7-9.3); NEUTROPHILS # (AUTO) 9.9 K/uL (1.8-7.7); NEUTROPHILS % (AUTO) 73.5 % (40.0-70.0); PLATELET COUNT (AUTO) 289 K/uL (130-430); RED BLOOD CELL COUNT(AUTO) 3.11 MIL/uL (4.2-6.2); RED CELL DISTRIBUTION WIDTH 23.4 % (9.0-15.0); WHITE BLOOD COUNT (AUTO) 13.5 K/uL (4.8-10.8)
[2022-04-04] MEDS: CALCIUM CARBONATE/VITAMIN D3 1 TAB TABLET GT SCH ×2 (09:50→21:54)
[2022-04-04] MEDS: hydrALAZINE HCL 25 MG TABLET GT SCH ×2 (09:50→21:56)
[2022-04-04] MEDS: CARVEDILOL 25 MG TABLET (COREG) GT SCH ×2 (09:51→21:55)
[2022-04-04] MEDS: FOLIC ACID 1 MG TABLET GT SCH (09:51)
[2022-04-04] MEDS: LACTOBACILLUS RHAMNOSUS GG 1 CAP CAPSULE GT SCH ×2 (09:51→21:55)
[2022-04-04] MEDS: FERROUS SULFATE 300 MG/5 ML UDC GT SCH ×2 (09:51→21:54)
[2022-04-04] MEDS: DOCUSATE SODIUM 100 MG/10 ML UDC GT SCH ×2 (09:51→21:54)
[2022-04-04] MEDS: NYSTATIN 30 GM TOPICAL CREAM TP SCH ×2 (09:56→21:58)
[2022-04-04] MEDS: VANCOMYCIN HCL ORAL SOLUTION 250 MG/5 ML, 80 ML PO SCH ×4 (09:56→21:58)
[2022-04-04 11:32] VITALS: BP_SYST 145
[2022-04-04 15:56] VITALS: BP_SYST 136
[2022-04-04] MEDS: 0.45% NACL 1,000 ML IV SCH (16:30)
[2022-04-04] MEDS: CITALOPRAM HYDROBROMIDE 20 MG TABLET GT SCH (18:28)
[2022-04-04 20:15] VITALS: BP_SYST 166
[2022-04-04] MEDS: SIMVASTATIN 40 MG TABLET GT SCH (21:55)
[2022-04-04] MEDS: ENOXAPARIN SODIUM 30 MG/0.3 ML SYRINGE SUBCUT SCH (22:00)
[2022-04-05] MEDS: INSULIN REGULAR, HUMAN 100 UNITS/ML, 10 ML VIAL (humuLIN R) SUBCUT PRN ×3 (00:23→18:00)
[2022-04-05 00:50] VITALS: BP_SYST 147
[2022-04-05] MEDS: LevALBUTEROL HCL 1.25 MG/0.5 ML *CONC.* VIAL.NEB (XOPENEX CONC.) INH SCH ×5 (01:30→20:11)
[2022-04-05] MEDS: metroNIDAZOLE 250 mg/NS 50 ML IV SCH ×3 (05:36→22:36)
[2022-04-05] MEDS: 0.45% NACL 1,000 ML IV SCH ×2 (05:38→14:36)
[2022-04-05] MEDS: LANSOPRAZOLE 30 MG CAPSULE.DR GT SCH (06:02)
[2022-04-05 08:00] VITALS: BP_SYST 164
[2022-04-05 08:14] LABS: BASOPHILS # (AUTO) 0.1 K/uL (0.0-0.2); BASOPHILS % (AUTO) 0.7 % (0.0-2.0); EOSINOPHILS # (AUTO) 0.2 K/uL (0.0-0.4); HEMATOCRIT 27.7 % (36-48); HEMOGLOBIN 9.1 g/dL (12.0-16.0); LYMPHOCYTES # (AUTO) 2.2 K/uL (1.0-5.5); LYMPHOCYTES % (AUTO) 18.3 % (20.5-51.5); MEAN CORPUSCULAR HEMOGLOBIN 30 pg (27-31); MEAN CORPUSCULAR HGB CONC 33 % (32-36); MEAN CORPUSCULAR VOLUME 92 fL (79.0-98.0); MONOCYTES # (AUTO) 0.9 K/uL (0.0-1.0); MONOCYTES % (AUTO) 7.4 % (1.7-9.3); NEUTROPHILS # (AUTO) 8.7 K/uL (1.8-7.7); NEUTROPHILS % (AUTO) 71.6 % (40.0-70.0); PLATELET COUNT (AUTO) 267 K/uL (130-430); RED BLOOD CELL COUNT(AUTO) 3.03 MIL/uL (4.2-6.2); RED CELL DISTRIBUTION WIDTH 24.2 % (9.0-15.0); WHITE BLOOD COUNT (AUTO) 12.2 K/uL (4.8-10.8)
[2022-04-05 08:42] LABS: ALANINE AMINOTRANSFERASE 8 U/L (12-78); ANION GAP 11 (5-15); ASPARTATE AMINOTRANSFERASE 18 U/L (10-37); CALCIUM 7.8 mg/dL (8.4-11.0); CHLORIDE 116 mmol/L (98-107); CREATININE 1.89 mg/dL (0.55-1.30); GLUCOSE 163 mg/dL (70-99); POTASSIUM 3.8 mmol/L (3.5-5.1); SODIUM SERUM 147 mmol/L (136-145); TOTAL BILIRUBIN 0.3 mg/dL (0.0-1.0); UREA NITROGEN, BLOOD 47 mg/dL (8-21)
[2022-04-05] MEDS: DOCUSATE SODIUM 100 MG/10 ML UDC GT SCH ×2 (09:00→21:52)
[2022-04-05] MEDS: CARVEDILOL 25 MG TABLET (COREG) GT SCH ×2 (09:01→21:52)
[2022-04-05] MEDS: FOLIC ACID 1 MG TABLET GT SCH (09:01)
[2022-04-05] MEDS: CALCIUM CARBONATE/VITAMIN D3 1 TAB TABLET GT SCH ×2 (09:04→21:53)
[2022-04-05] MEDS: FERROUS SULFATE 300 MG/5 ML UDC GT SCH ×2 (09:04→21:52)
[2022-04-05] MEDS: LACTOBACILLUS RHAMNOSUS GG 1 CAP CAPSULE GT SCH ×2 (09:04→21:51)
[2022-04-05] MEDS: hydrALAZINE HCL 25 MG TABLET GT SCH ×2 (09:04→21:52)
[2022-04-05] MEDS: VANCOMYCIN HCL ORAL SOLUTION 250 MG/5 ML, 80 ML PO SCH ×4 (09:05→21:53)
[2022-04-05] MEDS: NYSTATIN 30 GM TOPICAL CREAM TP SCH ×2 (09:05→21:53)
[2022-04-05 11:25] VITALS: BP_SYST 137
[2022-04-05 12:31] VITALS: BP_SYST 146
[2022-04-05] MEDS: CITALOPRAM HYDROBROMIDE 20 MG TABLET GT SCH (17:48)
[2022-04-05 20:00] VITALS: BP_SYST 157
[2022-04-05] MEDS: SIMVASTATIN 40 MG TABLET GT SCH (21:51)
[2022-04-05] MEDS: ENOXAPARIN SODIUM 30 MG/0.3 ML SYRINGE SUBCUT SCH (21:54)
[2022-04-05 23:56] VITALS: BP_SYST 151
[2022-04-06] MEDS: LevALBUTEROL HCL 1.25 MG/0.5 ML *CONC.* VIAL.NEB (XOPENEX CONC.) INH SCH ×4 (01:30→20:52)
[2022-04-06] MEDS: metroNIDAZOLE 250 mg/NS 50 ML IV SCH ×3 (06:35→20:59)
[2022-04-06 08:00] VITALS: BP_SYST 156
[2022-04-06] MEDS: FOLIC ACID 1 MG TABLET GT SCH (08:55)
[2022-04-06] MEDS: LACTOBACILLUS RHAMNOSUS GG 1 CAP CAPSULE GT SCH ×2 (08:55→20:49)
[2022-04-06] MEDS: hydrALAZINE HCL 25 MG TABLET GT SCH ×2 (08:56→20:48)
[2022-04-06] MEDS: CARVEDILOL 25 MG TABLET (COREG) GT SCH ×2 (08:56→20:49)
[2022-04-06] MEDS: CALCIUM CARBONATE/VITAMIN D3 1 TAB TABLET GT SCH ×2 (08:56→20:50)
[2022-04-06] MEDS: FERROUS SULFATE 300 MG/5 ML UDC GT SCH ×2 (08:56→20:50)
[2022-04-06] MEDS: LANSOPRAZOLE 30 MG CAPSULE.DR GT SCH (08:56)
[2022-04-06] MEDS: DOCUSATE SODIUM 100 MG/10 ML UDC GT SCH ×2 (08:58→20:49)
[2022-04-06] MEDS: NYSTATIN 30 GM TOPICAL CREAM TP SCH ×2 (09:00→20:54)
[2022-04-06] MEDS: VANCOMYCIN HCL ORAL SOLUTION 250 MG/5 ML, 80 ML PO SCH ×4 (09:00→20:56)
[2022-04-06] MEDS: 0.45% NACL 1,000 ML IV SCH ×2 (09:30→20:57)
[2022-04-06 11:28] VITALS: BP_SYST 152
[2022-04-06 15:26] VITALS: BP_SYST 151
[2022-04-06 19:00] VITALS: BP_SYST 151
[2022-04-06] MEDS: CITALOPRAM HYDROBROMIDE 20 MG TABLET GT SCH (19:26)
[2022-04-06 20:00] VITALS: BP_SYST 151
[2022-04-06] MEDS: SIMVASTATIN 40 MG TABLET GT SCH (20:50)
[2022-04-06] MEDS: ENOXAPARIN SODIUM 30 MG/0.3 ML SYRINGE SUBCUT SCH (21:01)
[2022-04-07 00:28] VITALS: BP_SYST 149
[2022-04-07] MEDS: LevALBUTEROL HCL 1.25 MG/0.5 ML *CONC.* VIAL.NEB (XOPENEX CONC.) INH SCH ×4 (01:37→19:43)
[2022-04-07] MEDS: ACETAMINOPHEN 325 MG TABLET GT PRN ×2 (05:39→21:05)
[2022-04-07] MEDS: LANSOPRAZOLE 30 MG CAPSULE.DR GT SCH (05:40)
[2022-04-07] MEDS: metroNIDAZOLE 250 mg/NS 50 ML IV SCH (05:40)
[2022-04-07 06:44] LABS: BASOPHILS # (AUTO) 0.1 K/uL (0.0-0.2); BASOPHILS % (AUTO) 0.6 % (0.0-2.0); EOSINOPHILS # (AUTO) 0.5 K/uL (0.0-0.4); EOSINOPHILS % (AUTO) 4.3 % (0.0-4.0); HEMATOCRIT 25.9 % (36-48); HEMOGLOBIN 8.8 g/dL (12.0-16.0); LYMPHOCYTES # (AUTO) 2.4 K/uL (1.0-5.5); LYMPHOCYTES % (AUTO) 21.9 % (20.5-51.5); MEAN CORPUSCULAR HEMOGLOBIN 30 pg (27-31); MEAN CORPUSCULAR HGB CONC 34 % (32-36); MEAN CORPUSCULAR VOLUME 90 fL (79.0-98.0); MONOCYTES # (AUTO) 0.9 K/uL (0.0-1.0); MONOCYTES % (AUTO) 8.1 % (1.7-9.3); NEUTROPHILS # (AUTO) 7.2 K/uL (1.8-7.7); NEUTROPHILS % (AUTO) 65.1 % (40.0-70.0); PLATELET COUNT (AUTO) 219 K/uL (130-430); RED BLOOD CELL COUNT(AUTO) 2.89 MIL/uL (4.2-6.2); RED CELL DISTRIBUTION WIDTH 23.1 % (9.0-15.0); WHITE BLOOD COUNT (AUTO) 11.1 K/uL (4.8-10.8)
[2022-04-07 07:09] LABS: ALANINE AMINOTRANSFERASE 11 U/L (12-78); ALBUMIN 1.9 g/dL (3.4-4.8); ANION GAP 13 (5-15); ASPARTATE AMINOTRANSFERASE 20 U/L (10-37); CALCIUM 7.7 mg/dL (8.4-11.0); CHLORIDE 103 mmol/L (98-107); CREATININE 1.54 mg/dL (0.55-1.30); GLUCOSE 102 mg/dL (70-99); POTASSIUM 3.5 mmol/L (3.5-5.1); SODIUM SERUM 134 mmol/L (136-145); TOTAL BILIRUBIN 0.4 mg/dL (0.0-1.0); UREA NITROGEN, BLOOD 36 mg/dL (8-21)
[2022-04-07 08:00] VITALS: BP_SYST 137
[2022-04-07] MEDS: DOCUSATE SODIUM 100 MG/10 ML UDC GT SCH ×2 (08:33→20:50)
[2022-04-07] MEDS: LACTOBACILLUS RHAMNOSUS GG 1 CAP CAPSULE GT SCH ×2 (08:34→20:51)
[2022-04-07] MEDS: FOLIC ACID 1 MG TABLET GT SCH (08:34)
[2022-04-07] MEDS: hydrALAZINE HCL 25 MG TABLET GT SCH ×2 (08:34→20:53)
[2022-04-07] MEDS: FERROUS SULFATE 300 MG/5 ML UDC GT SCH ×2 (08:35→20:50)
[2022-04-07] MEDS: CARVEDILOL 25 MG TABLET (COREG) GT SCH ×2 (08:35→20:50)
[2022-04-07] MEDS: CALCIUM CARBONATE/VITAMIN D3 1 TAB TABLET GT SCH ×2 (08:35→20:52)
[2022-04-07] MEDS: VANCOMYCIN HCL ORAL SOLUTION 250 MG/5 ML, 80 ML PO SCH ×3 (08:36→20:54)
[2022-04-07 08:40] VITALS: BP_SYST 149
[2022-04-07] MEDS: NYSTATIN 30 GM TOPICAL CREAM TP SCH ×2 (08:42→20:57)
[2022-04-07 11:27] VITALS: BP_SYST 155
[2022-04-07] MEDS: INSULIN REGULAR, HUMAN 100 UNITS/ML, 10 ML VIAL (humuLIN R) SUBCUT PRN ×2 (12:07→23:59)
[2022-04-07 15:38] VITALS: BP_SYST 145
[2022-04-07 20:00] VITALS: BP_SYST 150
[2022-04-07] MEDS: SIMVASTATIN 40 MG TABLET GT SCH (20:51)
[2022-04-07] MEDS: ENOXAPARIN SODIUM 30 MG/0.3 ML SYRINGE SUBCUT SCH (20:59)
[2022-04-08 00:08] VITALS: BP_SYST 141
[2022-04-08] MEDS: LevALBUTEROL HCL 1.25 MG/0.5 ML *CONC.* VIAL.NEB (XOPENEX CONC.) INH SCH ×4 (01:38→20:42)
[2022-04-08] MEDS: 0.45% NACL 1,000 ML IV SCH ×3 (03:31→12:23)
[2022-04-08 04:00] VITALS: BP_SYST 139
[2022-04-08] MEDS: LANSOPRAZOLE 30 MG CAPSULE.DR GT SCH (06:29)
[2022-04-08 08:00] VITALS: BP_SYST 157
[2022-04-08] MEDS: DOCUSATE SODIUM 100 MG/10 ML UDC GT SCH ×2 (09:01→21:00)
[2022-04-08] MEDS: FERROUS SULFATE 300 MG/5 ML UDC GT SCH ×2 (09:01→21:00)
[2022-04-08] MEDS: LACTOBACILLUS RHAMNOSUS GG 1 CAP CAPSULE GT SCH ×2 (09:02→21:00)
[2022-04-08] MEDS: FOLIC ACID 1 MG TABLET GT SCH (09:02)
[2022-04-08] MEDS: CALCIUM CARBONATE/VITAMIN D3 1 TAB TABLET GT SCH ×2 (09:02→21:01)
[2022-04-08] MEDS: VANCOMYCIN HCL ORAL SOLUTION 250 MG/5 ML, 80 ML PO SCH ×4 (09:08→21:08)
[2022-04-08] MEDS: CARVEDILOL 25 MG TABLET (COREG) GT SCH ×2 (09:09→21:03)
[2022-04-08] MEDS: NYSTATIN 30 GM TOPICAL CREAM TP SCH ×2 (09:10→21:09)
[2022-04-08] MEDS: hydrALAZINE HCL 25 MG TABLET GT SCH ×2 (09:11→21:02)
[2022-04-08 11:54] VITALS: BP_SYST 141
[2022-04-08] MEDS: INSULIN REGULAR, HUMAN 100 UNITS/ML, 10 ML VIAL (humuLIN R) SUBCUT PRN ×3 (12:22→23:42)
[2022-04-08 16:39] VITALS: BP_SYST 146
[2022-04-08] MEDS: CITALOPRAM HYDROBROMIDE 20 MG TABLET GT SCH (17:30)
[2022-04-08] MEDS: ACETAMINOPHEN 325 MG TABLET GT PRN (17:33)
[2022-04-08 20:00] VITALS: BP_SYST 128
[2022-04-08] MEDS: SIMVASTATIN 40 MG TABLET GT SCH (21:01)
[2022-04-08] MEDS: ENOXAPARIN SODIUM 30 MG/0.3 ML SYRINGE SUBCUT SCH (21:07)
[2022-04-09] VITALS: BP_SYST 120
[2022-04-09] MEDS: 0.45% NACL 1,000 ML IV SCH ×2 (01:07→16:43)
[2022-04-09 01:12] VITALS: BP_SYST 147
[2022-04-09] MEDS: LevALBUTEROL HCL 1.25 MG/0.5 ML *CONC.* VIAL.NEB (XOPENEX CONC.) INH SCH ×4 (01:19→20:28)
[2022-04-09 04:00] VITALS: BP_SYST 138
[2022-04-09] MEDS: LANSOPRAZOLE 30 MG CAPSULE.DR GT SCH (06:08)
[2022-04-09 08:00] VITALS: BP_SYST 127
[2022-04-09] MEDS: CALCIUM CARBONATE/VITAMIN D3 1 TAB TABLET GT SCH ×2 (09:29→21:25)
[2022-04-09] MEDS: LACTOBACILLUS RHAMNOSUS GG 1 CAP CAPSULE GT SCH ×2 (09:30→21:24)
[2022-04-09] MEDS: CARVEDILOL 25 MG TABLET (COREG) GT SCH ×2 (09:30→21:25)
[2022-04-09] MEDS: FOLIC ACID 1 MG TABLET GT SCH (09:30)
[2022-04-09] MEDS: hydrALAZINE HCL 25 MG TABLET GT SCH ×2 (09:31→21:26)
[2022-04-09] MEDS: FERROUS SULFATE 300 MG/5 ML UDC GT SCH ×2 (09:31→21:22)
[2022-04-09] MEDS: DOCUSATE SODIUM 100 MG/10 ML UDC GT SCH ×2 (09:32→21:00)
[2022-04-09] MEDS: VANCOMYCIN HCL ORAL SOLUTION 250 MG/5 ML, 80 ML PO SCH ×4 (09:33→21:00)
[2022-04-09] MEDS: NYSTATIN 30 GM TOPICAL CREAM TP SCH ×2 (09:34→21:28)
[2022-04-09 11:16] VITALS: BP_SYST 145
[2022-04-09] MEDS: INSULIN REGULAR, HUMAN 100 UNITS/ML, 10 ML VIAL (humuLIN R) SUBCUT PRN ×2 (12:20→17:33)
[2022-04-09 16:28] VITALS: BP_SYST 136
[2022-04-09] MEDS: CITALOPRAM HYDROBROMIDE 20 MG TABLET GT SCH (17:37)
[2022-04-09] MEDS: ENOXAPARIN SODIUM 30 MG/0.3 ML SYRINGE SUBCUT SCH (21:23)
[2022-04-09] MEDS: SIMVASTATIN 40 MG TABLET GT SCH (21:25)
[2022-04-10] MEDS: INSULIN REGULAR, HUMAN 100 UNITS/ML, 10 ML VIAL (humuLIN R) SUBCUT PRN ×3 (00:09→17:45)
[2022-04-10 00:35] VITALS: BP_SYST 123
[2022-04-10] MEDS: LevALBUTEROL HCL 1.25 MG/0.5 ML *CONC.* VIAL.NEB (XOPENEX CONC.) INH SCH ×4 (01:36→21:21)
[2022-04-10] MEDS: 0.45% NACL 1,000 ML IV SCH ×2 (05:50→17:42)
[2022-04-10] MEDS: LANSOPRAZOLE 30 MG CAPSULE.DR GT SCH (06:33)
[2022-04-10 07:09] LABS: HEMOGLOBIN 8.1 g/dL (12.0-16.0); MEAN CORPUSCULAR HEMOGLOBIN 31 pg (27-31); MEAN CORPUSCULAR HGB CONC 34 % (32-36); MEAN CORPUSCULAR VOLUME 91 fL (79.0-98.0); PLATELET COUNT (AUTO) 202 K/uL (130-430); RED BLOOD CELL COUNT(AUTO) 2.64 MIL/uL (4.2-6.2); RED CELL DISTRIBUTION WIDTH 25.5 % (9.0-15.0); WHITE BLOOD COUNT (AUTO) 11.7 K/uL (4.8-10.8)
[2022-04-10 07:59] LABS: ALANINE AMINOTRANSFERASE 13 U/L (12-78); ALBUMIN 1.9 g/dL (3.4-4.8); ANION GAP 9 (5-15); ASPARTATE AMINOTRANSFERASE 20 U/L (10-37); CALCIUM 8.3 mg/dL (8.4-11.0); CHLORIDE 99 mmol/L (98-107); CREATININE 1.55 mg/dL (0.55-1.30); GLUCOSE 154 mg/dL (70-99); POTASSIUM 4.9 mmol/L (3.5-5.1); SODIUM SERUM 129 mmol/L (136-145); TOTAL BILIRUBIN 0.3 mg/dL (0.0-1.0); UREA NITROGEN, BLOOD 44 mg/dL (8-21)
[2022-04-10 08:00] VITALS: BP_SYST 158
[2022-04-10] MEDS: FERROUS SULFATE 300 MG/5 ML UDC GT SCH ×2 (08:41→20:36)
[2022-04-10] MEDS: FOLIC ACID 1 MG TABLET GT SCH (08:41)
[2022-04-10] MEDS: CARVEDILOL 25 MG TABLET (COREG) GT SCH ×2 (08:41→20:37)
[2022-04-10] MEDS: CALCIUM CARBONATE/VITAMIN D3 1 TAB TABLET GT SCH ×2 (08:41→20:36)
[2022-04-10] MEDS: LACTOBACILLUS RHAMNOSUS GG 1 CAP CAPSULE GT SCH ×2 (08:41→20:36)
[2022-04-10] MEDS: hydrALAZINE HCL 25 MG TABLET GT SCH ×2 (08:42→20:37)
[2022-04-10] MEDS: DOCUSATE SODIUM 100 MG/10 ML UDC GT SCH ×2 (08:42→20:37)
[2022-04-10] MEDS: VANCOMYCIN HCL ORAL SOLUTION 250 MG/5 ML, 80 ML PO SCH ×4 (08:43→20:38)
[2022-04-10] MEDS: NYSTATIN 30 GM TOPICAL CREAM TP SCH ×2 (08:44→20:54)
[2022-04-10 12:10] LABS: BASOPHILS % (MANUAL) 0 % (0-2); EOSINOPHILS % (MANUAL) 6 % (0-7); LYMPHOCYTES % (MANUAL) 19 % (20-46); MONOCYTES % (MANUAL) 8 % (0-11)
[2022-04-10 12:40] VITALS: BP_SYST 147
[2022-04-10 16:18] VITALS: BP_SYST 140
[2022-04-10] MEDS: CITALOPRAM HYDROBROMIDE 20 MG TABLET GT SCH (17:42)
[2022-04-10 20:00] VITALS: BP_SYST 157
[2022-04-10] MEDS: SIMVASTATIN 40 MG TABLET GT SCH (20:40)
[2022-04-10] MEDS: ENOXAPARIN SODIUM 30 MG/0.3 ML SYRINGE SUBCUT SCH (20:50)
[2022-04-11 00:15] VITALS: BP_SYST 135
[2022-04-11] MEDS: INSULIN REGULAR, HUMAN 100 UNITS/ML, 10 ML VIAL (humuLIN R) SUBCUT PRN ×4 (00:39→23:41)
[2022-04-11] MEDS: LevALBUTEROL HCL 1.25 MG/0.5 ML *CONC.* VIAL.NEB (XOPENEX CONC.) INH SCH ×4 (01:14→21:16)
[2022-04-11] MEDS: LANSOPRAZOLE 30 MG CAPSULE.DR GT SCH (06:08)
[2022-04-11 06:42] LABS: BASOPHILS # (AUTO) 0.1 K/uL (0.0-0.2); BASOPHILS % (AUTO) 0.5 % (0.0-2.0); EOSINOPHILS # (AUTO) 0.7 K/uL (0.0-0.4); HEMATOCRIT 24.7 % (36-48); HEMOGLOBIN 8.5 g/dL (12.0-16.0); LYMPHOCYTES # (AUTO) 2.6 K/uL (1.0-5.5); LYMPHOCYTES % (AUTO) 21.2 % (20.5-51.5); MEAN CORPUSCULAR HEMOGLOBIN 31 pg (27-31); MEAN CORPUSCULAR HGB CONC 34 % (32-36); MEAN CORPUSCULAR VOLUME 91 fL (79.0-98.0); MONOCYTES # (AUTO) 1.2 K/uL (0.0-1.0); MONOCYTES % (AUTO) 9.3 % (1.7-9.3); NEUTROPHILS # (AUTO) 7.9 K/uL (1.8-7.7); PLATELET COUNT (AUTO) 208 K/uL (130-430); RED BLOOD CELL COUNT(AUTO) 2.71 MIL/uL (4.2-6.2); RED CELL DISTRIBUTION WIDTH 24.9 % (9.0-15.0); WHITE BLOOD COUNT (AUTO) 12.5 K/uL (4.8-10.8)
[2022-04-11 07:41] LABS: ANION GAP 10 (5-15); CALCIUM 8.5 mg/dL (8.4-11.0); CHLORIDE 100 mmol/L (98-107); CREATININE 1.61 mg/dL (0.55-1.30); GLUCOSE 158 mg/dL (70-99); POTASSIUM 5.5 mmol/L (3.5-5.1); SODIUM SERUM 131 mmol/L (136-145); UREA NITROGEN, BLOOD 47 mg/dL (8-21)
[2022-04-11 08:00] VITALS: BP_SYST 137
[2022-04-11] MEDS: CALCIUM CARBONATE/VITAMIN D3 1 TAB TABLET GT SCH ×2 (08:46→21:33)
[2022-04-11] MEDS: DOCUSATE SODIUM 100 MG/10 ML UDC GT SCH ×2 (08:46→21:30)
[2022-04-11] MEDS: FERROUS SULFATE 300 MG/5 ML UDC GT SCH ×2 (08:46→21:30)
[2022-04-11] MEDS: FOLIC ACID 1 MG TABLET GT SCH (08:46)
[2022-04-11] MEDS: CARVEDILOL 25 MG TABLET (COREG) GT SCH ×2 (08:47→21:31)
[2022-04-11] MEDS: hydrALAZINE HCL 25 MG TABLET GT SCH ×2 (08:48→21:35)
[2022-04-11] MEDS: LACTOBACILLUS RHAMNOSUS GG 1 CAP CAPSULE GT SCH ×2 (08:54→21:31)
[2022-04-11] MEDS: NYSTATIN 30 GM TOPICAL CREAM TP SCH ×2 (08:55→21:36)
[2022-04-11] MEDS ORDERED: SODIUM POLYSTYRENE SULFONATE 15 GM/60 ML UDBTL PO ONE (10:15)
[2022-04-11 11:26] VITALS: BP_SYST 135
[2022-04-11] MEDS: 0.45% NACL 1,000 ML IV SCH ×2 (11:49→21:43)
[2022-04-11 16:07] VITALS: BP_SYST 131
[2022-04-11] MEDS: CITALOPRAM HYDROBROMIDE 20 MG TABLET GT SCH (17:00)
[2022-04-11 20:00] VITALS: BP_SYST 148
[2022-04-11] MEDS: SIMVASTATIN 40 MG TABLET GT SCH (21:32)
[2022-04-11] MEDS: ENOXAPARIN SODIUM 30 MG/0.3 ML SYRINGE SUBCUT SCH (21:35)
[2022-04-12 00:50] VITALS: BP_SYST 128
[2022-04-12] MEDS: LevALBUTEROL HCL 1.25 MG/0.5 ML *CONC.* VIAL.NEB (XOPENEX CONC.) INH SCH ×4 (04:49→19:59)
[2022-04-12] MEDS: LANSOPRAZOLE 30 MG CAPSULE.DR GT SCH (05:57)
[2022-04-12 06:49] LABS: ANION GAP 10 (5-15); CALCIUM 8.7 mg/dL (8.4-11.0); CHLORIDE 98 mmol/L (98-107); GLUCOSE 143 mg/dL (70-99); POTASSIUM 5.3 mmol/L (3.5-5.1); SODIUM SERUM 130 mmol/L (136-145); UREA NITROGEN, BLOOD 48 mg/dL (8-21)
[2022-04-12 08:32] VITALS: BP_SYST 154
[2022-04-12] MEDS ORDERED: SODIUM POLYSTYRENE SULFONATE 15 GM/60 ML UDBTL PO ONE (09:30)
[2022-04-12] MEDS: FOLIC ACID 1 MG TABLET GT SCH (09:50)
[2022-04-12] MEDS: FERROUS SULFATE 300 MG/5 ML UDC GT SCH ×2 (09:50→21:55)
[2022-04-12] MEDS: DOCUSATE SODIUM 100 MG/10 ML UDC GT SCH ×2 (09:50→21:00)
[2022-04-12] MEDS: LACTOBACILLUS RHAMNOSUS GG 1 CAP CAPSULE GT SCH ×2 (09:50→21:56)
[2022-04-12] MEDS: CARVEDILOL 25 MG TABLET (COREG) GT SCH ×2 (09:51→21:58)
[2022-04-12] MEDS: CALCIUM CARBONATE/VITAMIN D3 1 TAB TABLET GT SCH ×2 (09:52→21:58)
[2022-04-12] MEDS: hydrALAZINE HCL 25 MG TABLET GT SCH ×2 (09:52→21:53)
[2022-04-12] MEDS: NYSTATIN 30 GM TOPICAL CREAM TP SCH ×2 (09:54→21:59)
[2022-04-12 11:29] VITALS: BP_SYST 132
[2022-04-12] MEDS: INSULIN REGULAR, HUMAN 100 UNITS/ML, 10 ML VIAL (humuLIN R) SUBCUT PRN ×3 (12:42→23:33)
[2022-04-12] MEDS: ACETAMINOPHEN 325 MG TABLET GT PRN (12:42)
[2022-04-12] MEDS: 0.45% NACL 1,000 ML IV SCH (12:46)
[2022-04-12 15:55] VITALS: BP_SYST 121
[2022-04-12] MEDS: CITALOPRAM HYDROBROMIDE 20 MG TABLET GT SCH (17:47)
[2022-04-12 20:00] VITALS: BP_SYST 157
[2022-04-12] MEDS: SIMVASTATIN 40 MG TABLET GT SCH (21:52)
[2022-04-12] MEDS: ENOXAPARIN SODIUM 30 MG/0.3 ML SYRINGE SUBCUT SCH (22:01)
[2022-04-12 23:45] VITALS: BP_SYST 149
[2022-04-13 00:25] VITALS: BP_SYST 149
[2022-04-13] MEDS: LevALBUTEROL HCL 1.25 MG/0.5 ML *CONC.* VIAL.NEB (XOPENEX CONC.) INH SCH ×3 (01:00→13:38)
[2022-04-13] MEDS: 0.45% NACL 1,000 ML IV SCH ×2 (03:27→13:50)
[2022-04-13] MEDS: LANSOPRAZOLE 30 MG CAPSULE.DR GT SCH (06:20)
[2022-04-13] MEDS: INSULIN REGULAR, HUMAN 100 UNITS/ML, 10 ML VIAL (humuLIN R) SUBCUT PRN ×2 (06:27→12:25)
[2022-04-13 08:00] VITALS: BP_SYST 135
[2022-04-13] MEDS: FOLIC ACID 1 MG TABLET GT SCH (08:56)
[2022-04-13] MEDS: LACTOBACILLUS RHAMNOSUS GG 1 CAP CAPSULE GT SCH (08:56)
[2022-04-13] MEDS: FERROUS SULFATE 300 MG/5 ML UDC GT SCH (08:56)
[2022-04-13] MEDS: DOCUSATE SODIUM 100 MG/10 ML UDC GT SCH (08:56)
[2022-04-13] MEDS: CALCIUM CARBONATE/VITAMIN D3 1 TAB TABLET GT SCH (08:56)
[2022-04-13] MEDS: hydrALAZINE HCL 25 MG TABLET GT SCH (08:57)
[2022-04-13] MEDS: CARVEDILOL 25 MG TABLET (COREG) GT SCH (08:57)
[2022-04-13] MEDS: NYSTATIN 30 GM TOPICAL CREAM TP SCH (08:58)
[2022-04-13 11:26] VITALS: BP_SYST 134
[2022-04-13 13:42] VITALS: BP_SYST 131
[2022-04-13] MEDS: ACETAMINOPHEN 325 MG TABLET GT PRN (14:44)
[2022-04-13 15:26] VITALS: BP_SYST 121
== END 2022-04-13 16:45 | DRG 314 ==
LOC: SED 11:15 → SIC 13:58 → STU 03-29 07:46 → SMU 04-10 19:40
PROVIDERS: ADMIT Family Medicine; ATTEND Family Medicine
PROC: 5A09357 Assistance with Respiratory Ventilation, Less than 24 Consecutive Hours, Continuous Positive Airway Pressure (ICD-10-PCS; principal; 2022-03-26)
DX: T80.211A Bloodstream infection due to central venous catheter, initial encounter (principal); A41.59 Other Gram-negative sepsis; J18.9 Pneumonia, unspecified organism; J96.00 Acute respiratory failure, unspecified whether with hypoxia or hypercapnia; N18.6 End stage renal disease; N39.0 Urinary tract infection, site not specified; N20.1 Calculus of ureter; I13.2 Hypertensive heart and chronic kidney disease with heart failure and with stage 5 chronic kidney disease, or end stage renal disease; K94.23 Gastrostomy malfunction; A04.72 Enterocolitis due to Clostridium difficile, not specified as recurrent; D64.9 Anemia, unspecified; E11.22 Type 2 diabetes mellitus with diabetic chronic kidney disease; F03.90 Unspecified dementia, unspecified severity, without behavioral disturbance, psychotic disturbance, mood disturbance, and anxiety; R13.10 Dysphagia, unspecified; I50.9 Heart failure, unspecified; E66.01 Morbid (severe) obesity due to excess calories; Y83.8 Other surgical procedures as the cause of abnormal reaction of the patient, or of later complication, without mention of misadventure at the time of the procedure; Z20.822 Contact with and (suspected) exposure to COVID-19; Z74.01 Bed confinement status; Z87.442 Personal history of urinary calculi; Y92.89 Other specified places as the place of occurrence of the external cause; Z88.2 Allergy status to sulfonamides; Z88.8 Allergy status to other drugs, medicaments and biological substances; Z79.899 Other long term (current) drug therapy
CPT/HCPCS: 36415; 36600; 71045; 74240-TC; 80048; 80053; 80061; 81000; 82803-TC; 82962; 83605; 83690; 83735; 83880; 84132; 84443; 84484; 85007; 85025; 85027; 87040; 87081; 87086; 87230-TC; 92610-GN; 93005; 93306; 94640; 94660; 94760; 96365; 96375; 99291; G0378; J0692; J0696; J1450; J1650; J1815; J1940; J2405; J2543; J3370; J3475; J3480; J3490; J7060; J7612; Q9963

== ENCOUNTER 2022-04-27 11:30 | Inpatient (IN) | payer OTHER, MEDICAID ==
[~2022-04-27] VITALS: Ht 165.1 cm; Wt 82.1 kg
[2022-04-27 11:30] VITALS: BP_SYST 119
[~2022-04-27 11:30] MED LIST changes: +BISA-79 GT; +CALC1TAB26 PEG; -CALMO120 TP; +DOCU-144 PO; -ESCI10TA PO; +FERR-69 GT; +FOLI-43 GT; +LACT1CAP69 PEG; -LINA5TAB2 PO; -LOPE2CAP PO; -LOSA100T3 PO; +MOM GT; -ONDA-8 TL; -ONDA4TAB5 PO; +PRO40 PEG; -PRO40 PO; -SACC250C3 PO; +SSREG SUBCUT
--- NOTE | 2022-04-27 11:30 | NUR ---
BROUGHT IN BY S AMBULANCE, PLACED IN BED #2 AND TRIAGED, REPORT GIVEN TO YNES
--- NOTE | 2022-04-27 11:30 | NUR ---
[facility]
[2022-04-27 12:05] LABS: HEMATOCRIT 26.1 % (36-48); HEMOGLOBIN 9.4 g/dL (12.0-16.0); MEAN CORPUSCULAR HEMOGLOBIN 33 pg (27-31); MEAN CORPUSCULAR HGB CONC 36 % (32-36); MEAN CORPUSCULAR VOLUME 93 fL (79.0-98.0); PLATELET COUNT (AUTO) 361 K/uL (130-430); RED BLOOD CELL COUNT(AUTO) 2.81 MIL/uL (4.2-6.2); RED CELL DISTRIBUTION WIDTH 21.5 % (9.0-15.0); WHITE BLOOD COUNT (AUTO) 16.7 K/uL (4.8-10.8)
[2022-04-27 12:25] LABS: ANION GAP 11 (5-15); CALCIUM 8.2 mg/dL (8.4-11.0); CHLORIDE 92 mmol/L (98-107); CREATININE 1.73 mg/dL (0.55-1.30); GLUCOSE 225 mg/dL (70-99); POTASSIUM 5.3 mmol/L (3.5-5.1); SODIUM SERUM 121 mmol/L (136-145); UREA NITROGEN, BLOOD 56 mg/dL (8-21)
[2022-04-27 12:28] LABS: BAND % (MANUAL) 9 % (0-6); BASOPHILS % (MANUAL) 0 % (0-2); EOSINOPHILS % (MANUAL) 0 % (0-7); LYMPHOCYTES % (MANUAL) 8 % (20-46); METAMYELOCYTES % 4 % (0-0); MONOCYTES % (MANUAL) 6 % (0-11)
[2022-04-27 12:29] LABS: ALANINE AMINOTRANSFERASE 12 U/L (12-78); AMYLASE 108 U/L (0-100); ASPARTATE AMINOTRANSFERASE 14 U/L (10-37); LIPASE 345 U/L (73-393); TOTAL BILIRUBIN 0.3 mg/dL (0.0-1.0)
[2022-04-27] MEDS ORDERED: PIPERACILLIN/TAZOBACTAM 2.25 GM in NS 50 ML IV ONE (13:30)
--- NOTE | 2022-04-27 14:00 | NUR ---
RESTING IN BED VSS APPEARS TO BE IN NO ACUTE DISTRESSNOTES Addendum: 04/27/22 at 1839 by [email or web address] A/OX4 VSS RESTING IN BED APPEARS TO BE IN NO ACUTE DISTRESS NOTED AT THIS TIME
[2022-04-27 14:23] LABS: BILIRUBIN,URINE 2+ (NEGATIVE); BLOOD, URINE 3+ (NEGATIVE); CLARITY/URINE CLOUDY (CLEAR); COLOR,URINE RED (YELLOW); GLUCOSE,URINE TRACE (NEGATIVE); KETONES,URINE NEGATIVE (NEGATIVE); LEUKOCYTE ESTERASE ,URINE 2+ (NEGATIVE); NITRITE, URINE POSITIVE (NEGATIVE); PH,URINE 8.5 (5.0-8.0); PROTEIN URINE 3+ (NEGATIVE)
[2022-04-27] MEDS ORDERED: PIPERACILLIN/TAZOBACTAM 2.25 GM VIAL IV ONE (14:30)
[2022-04-27 14:35] LABS: RBC,URINE 20-50 /HPF (0-3)
[2022-04-27 14:36] LABS: BACTERIA,URINE MANY /HPF (None Seen)
[2022-04-27] MEDS ORDERED: 0.45% NACL 1,000 ML IV SCH (15:45)
--- NOTE | 2022-04-27 16:00 | NUR ---
PT RESTING IN BED ,AWARE OF ADMISSION, EDUCATED ON THE ADMISSION PROCESS, VERBALIZED UNDERSTANDING
[2022-04-27] MEDS ORDERED: MILK OF MAGNESIA 30 ML UDC GT PRN (18:00)
[2022-04-27] MEDS: NACL 0.9% 1,000 ML IV SCH (18:15)
[2022-04-27] MEDS ORDERED: DEXTROSE 50%-WATER 50 ML DISP.SYRIN IVP PRN (18:30)
[2022-04-27] MEDS ORDERED: GLUCOSE (DEXTROSE) ORAL GEL -Adults PO PRN (18:30)
[2022-04-27] MEDS ORDERED: D5W 1,000 ML IV PRN (18:30)
--- NOTE | 2022-04-27 18:40 | NUR ---
18:00 RENAL MD AT BEDSIDE AT THIS TIME
--- NOTE | 2022-04-27 19:25 | NUR ---
ASSUMED CARE OF THIS PATIENT HERE FOR POSSIBLE CLOGGED NEPHROSTOMY TUBE, NOTED BLOOD TINGE ON RUBE AREA. PATIENT DENIES PAIN AT THIS TIME, DENIES FEVER AND CHILLS. PATIENT CLEANED NOTED EXCORIATION ON PERINEAL AND BUTTOCKS AREA, POSITION FOR COMFORT. INFORMED PT THAT SHE WILL BE ADMITTED AND TRASFER TO MED SURG FLOOR, SHE VERBALIZED UNDERSTANDING.
--- NOTE | 2022-04-27 19:50 | NUR ---
rEPORT GIVEN TO SONJA PERDOMO.
[2022-04-27 20:00] VITALS: BP_SYST 122
--- NOTE | 2022-04-27 20:05 | NUR ---
PATIENT TRANSFER TO [facility] RM 123A, PT AAOX4, NO SOB NOTED AND NOT IN ANY DISTRESS. PATIENT ENDORSED TO SONJA PERDOMO AT BEDSIDE. IVF ENDED AT 1999
--- NOTE | 2022-04-27 20:11 | NUR ---
Received report from CONOR Guevara, from ED at 1999. Pt arrived on unit in [facility] at 2003. Pt condition stable. Pt then transferred to bed and given call light box instructions by two staff. Pt appears to understand. Pt also very [place].
[2022-04-27] MEDS: CALCIUM CARBONATE/VITAMIN D3 1 TAB TABLET GT SCH (21:00)
[2022-04-27] MEDS ORDERED: LACTOBACILLUS ACIDOPHILUS PEG SCH (21:00)
[2022-04-27] MEDS: INSULIN REGULAR, HUMAN 100 UNITS/ML, 10 ML VIAL (humuLIN R) SUBCUT PRN (23:47)
[2022-04-27] MEDS: DOCUSATE SODIUM 100 MG CAPSULE PO SCH (23:49)
[2022-04-27] MEDS: FERROUS SULFATE 300 MG/5 ML UDC GT SCH (23:49)
[2022-04-27] MEDS: SIMVASTATIN 40 MG TABLET GT SCH (23:49)
[2022-04-27] MEDS: LACTOBACILLUS RHAMNOSUS GG 1 CAP CAPSULE GT SCH (23:50)
[2022-04-27] MEDS: CARVEDILOL 25 MG TABLET (COREG) GT SCH (23:51)
[2022-04-27] MEDS ORDERED: CEFEPIME 1 GM/VIAL (MAXIPIME) ONE (23:53)
[2022-04-27] MEDS: CEFEPIME 1 GM in D5W 50 ML IV SCH (23:54)
[2022-04-28 00:16] VITALS: BP_SYST 122
--- NOTE | 2022-04-28 01:41 | NUR ---
ATTEMPTED GT FEEDING START BUT MACHINE GAVE MSSG " ZEE FLOW". AFTER RE-PRIMING AND RECHECKING PORTS, CLAMPS, ETC. GT FEEDING PUMP CONTINUED TO GIVE "ZEE FLOW" ERROR MSSG. SO, NEW TUBING APPLIED, PRIMED, AND STARTED. NO PROBLEMS NOTED FROM 2D GT FEEDING TUBE. Addendum: 04/28/22 at 0526 by Twenty two coat feller ONE HR POST INITIATION OF GT FEEDING RESIDUAL WAS CHECKED. RESIDUAL FOUND TO BE APPROX. 10ML. PT TOLERATING FEEDING WELL.
[2022-04-28] MEDS: NACL 0.9% 1,000 ML IV SCH ×2 (05:00→14:53)
[2022-04-28 07:03] LABS: BASOPHILS % (AUTO) 0.1 % (0.0-2.0); EOSINOPHILS # (AUTO) 0.2 K/uL (0.0-0.4); EOSINOPHILS % (AUTO) 0.6 % (0.0-4.0); HEMATOCRIT 28.6 % (36-48); HEMOGLOBIN 10.1 g/dL (12.0-16.0); LYMPHOCYTES % (AUTO) 7.1 % (20.5-51.5); MEAN CORPUSCULAR HEMOGLOBIN 33 pg (27-31); MEAN CORPUSCULAR HGB CONC 35 % (32-36); MEAN CORPUSCULAR VOLUME 93 fL (79.0-98.0); MONOCYTES # (AUTO) 1.4 K/uL (0.0-1.0); MONOCYTES % (AUTO) 5.1 % (1.7-9.3); NEUTROPHILS # (AUTO) 24.7 K/uL (1.8-7.7); NEUTROPHILS % (AUTO) 87.1 % (40.0-70.0); PLATELET COUNT (AUTO) 385 K/uL (130-430); RED BLOOD CELL COUNT(AUTO) 3.07 MIL/uL (4.2-6.2); RED CELL DISTRIBUTION WIDTH 21.7 % (9.0-15.0); WHITE BLOOD COUNT (AUTO) 28.4 K/uL (4.8-10.8)
[2022-04-28 07:51] LABS: ANION GAP 12 (5-15); CALCIUM 8.6 mg/dL (8.4-11.0); CHLORIDE 95 mmol/L (98-107); CREATININE 1.73 mg/dL (0.55-1.30); GLUCOSE 214 mg/dL (70-99); POTASSIUM 4.8 mmol/L (3.5-5.1); SODIUM SERUM 125 mmol/L (136-145); UREA NITROGEN, BLOOD 56 mg/dL (8-21)
--- NOTE | 2022-04-28 08:08 | NUR ---
CONSULT: UROLOGY NEPHROSTOMY MALFUNCTION GABINO SEBASTIAN [phone] LEFT DETAILED MESSAGE
[2022-04-28] MEDS ORDERED: PANTOPRAZOLE SODIUM 40 MG TAB GT SCH (09:00)
[2022-04-28] MEDS: FERROUS SULFATE 300 MG/5 ML UDC GT SCH ×2 (09:08→21:10)
[2022-04-28] MEDS: CITALOPRAM HYDROBROMIDE 20 MG TABLET GT SCH (09:09)
[2022-04-28] MEDS: CARVEDILOL 25 MG TABLET (COREG) GT SCH ×2 (09:09→21:11)
[2022-04-28] MEDS: DOCUSATE SODIUM 100 MG CAPSULE PO SCH ×2 (09:10→21:12)
[2022-04-28] MEDS: FOLIC ACID 1 MG TABLET GT SCH (09:10)
[2022-04-28] MEDS: LANSOPRAZOLE 30 MG CAPSULE.DR GT SCH (09:10)
[2022-04-28] MEDS: LACTOBACILLUS RHAMNOSUS GG 1 CAP CAPSULE GT SCH ×2 (09:10→21:13)
[2022-04-28] MEDS: CALCIUM CARBONATE/VITAMIN D3 1 TAB TABLET GT SCH ×2 (09:10→21:10)
[2022-04-28] MEDS: ACETAMINOPHEN 650 MG/20.3 ML UDC GT PRN (09:35)
[2022-04-28 12:54] VITALS: BP_SYST 104
[2022-04-28 16:19] VITALS: BP_SYST 120
--- NOTE | 2022-04-28 17:15 | NUR ---
ST EVALUATION COMPLETED. ST TX NOT INDICATED AT THIS TIME. RECOMMEND PO DIET OF MECHANICAL SOFT AND THIN LIQUIDS. SET UP AND SUPERVISION FOR ASPIRATION PRECAUTIONS.
[2022-04-28] MEDS ORDERED: LACTOBACILLUS RHAMNOSUS GG 1 CAP CAPSULE PO SCH (21:00)
[2022-04-28] MEDS: metroNIDAZOLE 500 MG TABLET PO SCH (21:11)
[2022-04-28] MEDS: SIMVASTATIN 40 MG TABLET GT SCH (21:11)
[2022-04-28] MEDS: CEFEPIME 1 GM in D5W 50 ML IV SCH (21:12)
[2022-04-29] MEDS: NACL 0.9% 1,000 ML IV SCH ×3 (00:15→20:18)
[2022-04-29 02:20] VITALS: BP_SYST 122
[2022-04-29] MEDS: ACETAMINOPHEN 650 MG/20.3 ML UDC GT PRN ×2 (06:22→21:06)
[2022-04-29] MEDS: LANSOPRAZOLE 30 MG CAPSULE.DR GT SCH (06:22)
[2022-04-29] MEDS: metroNIDAZOLE 500 MG TABLET PO SCH ×3 (06:22→21:05)
[2022-04-29] MEDS: LACTOBACILLUS RHAMNOSUS GG 1 CAP CAPSULE GT SCH ×2 (09:48→20:18)
[2022-04-29] MEDS: FERROUS SULFATE 300 MG/5 ML UDC GT SCH ×2 (09:48→20:19)
[2022-04-29] MEDS: FOLIC ACID 1 MG TABLET GT SCH (09:48)
[2022-04-29] MEDS: DOCUSATE SODIUM 100 MG CAPSULE PO SCH ×2 (09:48→20:18)
[2022-04-29] MEDS: CITALOPRAM HYDROBROMIDE 20 MG TABLET GT SCH (09:49)
[2022-04-29] MEDS: CARVEDILOL 25 MG TABLET (COREG) GT SCH ×2 (09:49→20:19)
[2022-04-29] MEDS: CALCIUM CARBONATE/VITAMIN D3 1 TAB TABLET GT SCH ×2 (09:49→20:19)
[2022-04-29 12:52] VITALS: BP_SYST 128
[2022-04-29 16:17] VITALS: BP_SYST 125
--- NOTE | 2022-04-29 16:26 | NUR ---
Discharge Planning: DCP faxed pt referral to [facility] [phone] to follow up
--- NOTE | 2022-04-29 19:15 | NUR ---
OPENING NOTE REPORT RECEIVED FROM DAYSHIFT NURSE. PATIENT RECEIVED LYING IN BED, AWAKE, ALERT, NO S/S OF ACUTE DISTRESS, PATIENT DENIES PAIN. BREATHING EVEN AND UNLABORED, HOB RAISED. IV SITE IS NOT PATENT, WILL REMOVE AND INSERT A NEW IV LATER, PATIENT UNDERSTOOD AND AGREED. GTUBE ATTACHED, CLAMPED. SKIN WARM AND DRY TO TOUCH, NO S/S OF HYPOGLYCEMIA NOTED. CALL LIGHT WITH PATIENT, DEMONSTRATED BACK PROPER USE. BED ALARM ON. BED IS LOCKED AND AT LOWEST POSITION. WILL CONTINUE TO MONITOR.
[2022-04-29 20:00] VITALS: BP_SYST 131
[2022-04-29] MEDS: SIMVASTATIN 40 MG TABLET GT SCH (20:18)
[2022-04-29] MEDS: CEFEPIME 1 GM in D5W 50 ML IV SCH (20:20)
[2022-04-30 00:37] VITALS: BP_SYST 129
[2022-04-30] MEDS: LANSOPRAZOLE 30 MG CAPSULE.DR GT SCH (06:06)
[2022-04-30] MEDS: metroNIDAZOLE 500 MG TABLET PO SCH ×3 (06:06→23:50)
[2022-04-30] MEDS: NACL 0.9% 1,000 ML IV SCH ×2 (06:07→16:15)
--- NOTE | 2022-04-30 06:36 | NUR ---
REFUSE INSULIN/MRSA/CLOSING NOTE ACCUCHECK DONE, BS AT 160, PATIENT REFUSING INSULIN, STATING SHE TAKES METFORMIN ALREADY. EDUCATED ON PURPOSE OF HUMILIN R, PATIENT STILL REFUSES. MRSA SWAB DONE AT THIS TIME, COLLECTED, AND BROUGHT TO LAB, PATIENT TOLERATED WELL. PATIENT IN BED, RESTING, NO S/S OF ACUTE DISTRESS. BREATHING EVEN AND UNLABORED. IVF INFUSING WELL, IV SITE PATENT, NO SIGNS OF INFILTRATION OR INFECTION NOTED. ALL NEEDS MET THROUGHOUT SHIFT. FALL AND SAFETY PRECAUTIONS MAINTAINED THROUGHOUT SHIFT. WILL CONTINUE TO MONITOR UNTIL PATIENT CARE IS ENDORSED TO ONCOMING DAYSHIFT NURSE.
[2022-04-30 08:00] VITALS: BP_SYST 132
[2022-04-30] MEDS: DOCUSATE SODIUM 100 MG CAPSULE PO SCH ×2 (09:00→23:50)
[2022-04-30] MEDS: FOLIC ACID 1 MG TABLET GT SCH (09:53)
[2022-04-30] MEDS: LACTOBACILLUS RHAMNOSUS GG 1 CAP CAPSULE GT SCH ×2 (09:53→23:50)
[2022-04-30] MEDS: FERROUS SULFATE 300 MG/5 ML UDC GT SCH ×2 (09:53→23:50)
[2022-04-30] MEDS: CARVEDILOL 25 MG TABLET (COREG) GT SCH ×2 (09:53)
[2022-04-30] MEDS: CITALOPRAM HYDROBROMIDE 20 MG TABLET GT SCH (09:53)
[2022-04-30] MEDS: CALCIUM CARBONATE/VITAMIN D3 1 TAB TABLET GT SCH ×2 (09:53→23:50)
[2022-04-30] MEDS: ACETAMINOPHEN 650 MG/20.3 ML UDC GT PRN (09:56)
--- NOTE | 2022-04-30 11:47 | NUR ---
Dietitian Recommendations * Continue Pureed diet (Ensure Enlive TID comes standard w/ current diet ONS yields 1050 kcal/day, 60 gm protein/day) * Consider GT feeding (Glucerna 1.5 at 50 ml/hr, FWF: per physician via GT) if PO intakes decline * Consider prokinetic agent LP, RD Please refer to Nutrition Assessment for details. Addendum: 04/30/22 at [address] Amended: Links added.
[2022-04-30 11:55] LABS: BASOPHILS # (AUTO) 0.1 K/uL (0.0-0.2); BASOPHILS % (AUTO) 0.4 % (0.0-2.0); EOSINOPHILS # (AUTO) 0.4 K/uL (0.0-0.4); EOSINOPHILS % (AUTO) 2.2 % (0.0-4.0); HEMATOCRIT 25.5 % (36-48); LYMPHOCYTES # (AUTO) 2.2 K/uL (1.0-5.5); LYMPHOCYTES % (AUTO) 12.9 % (20.5-51.5); MEAN CORPUSCULAR HEMOGLOBIN 33 pg (27-31); MEAN CORPUSCULAR HGB CONC 35 % (32-36); MEAN CORPUSCULAR VOLUME 93 fL (79.0-98.0); MONOCYTES # (AUTO) 1.5 K/uL (0.0-1.0); MONOCYTES % (AUTO) 9.1 % (1.7-9.3); NEUTROPHILS # (AUTO) 12.8 K/uL (1.8-7.7); NEUTROPHILS % (AUTO) 75.4 % (40.0-70.0); PLATELET COUNT (AUTO) 335 K/uL (130-430); RED BLOOD CELL COUNT(AUTO) 2.73 MIL/uL (4.2-6.2); RED CELL DISTRIBUTION WIDTH 20.9 % (9.0-15.0)
[2022-04-30 12:09] LABS: ANION GAP 12 (5-15); CALCIUM 7.7 mg/dL (8.4-11.0); CHLORIDE 97 mmol/L (98-107); GLUCOSE 162 mg/dL (70-99); POTASSIUM 4.2 mmol/L (3.5-5.1); SODIUM SERUM 126 mmol/L (136-145); UREA NITROGEN, BLOOD 36 mg/dL (8-21)
[2022-04-30] MEDS: INSULIN REGULAR, HUMAN 100 UNITS/ML, 10 ML VIAL (humuLIN R) SUBCUT PRN (12:53)
[2022-04-30 12:54] VITALS: BP_SYST 130
--- NOTE | 2022-04-30 13:36 | NUR ---
CM: Followed up with [facility]#[phone] , bed available is available today # 115A per [facility]. Dr Mercer made aware, he will reeval for dc. Giselle LARKIN to follow up with the dc order. Ambulance: may call [facility] [phone] for the transfer.
[2022-04-30] MEDS ORDERED: MEROPENEM 1 GM IVPB PREMIX 50 ML IV SCH (14:00)
[2022-04-30] MEDS ORDERED: MEROPENEM 1 GM in NS 100 ML IV ONE (14:15)
[2022-04-30 16:59] VITALS: BP_SYST 131
--- NOTE | 2022-04-30 19:30 | NUR ---
PM NURSE OPENING NOTES HAND-OFF REPORT RECEIVED FROM NICOLE PERDOMO.REPORTED RIGHT NEPHROSTOMY TUBE PULLED TODAY. SITE OPEN TO AIR. FLAGYL AND MEROPENEM CONTINUES. GTUBE INTACT AND FLUSHES WELL. SOME MEDS PREFERRED THRU THIS ROUTE. PUREE DIET BRYAN. WELL. RFA 22 GA WITH NS @ 100 ML/HR. REPORTED SESITIVE TO INSULIN. PT PM ORAL AGENTS.
[2022-04-30 20:00] VITALS: BP_SYST 150
[2022-04-30] MEDS: SIMVASTATIN 40 MG TABLET GT SCH (23:50)
[2022-04-30] MEDS: MEROPENEM 1 GM in NS 100 ML IV SCH (23:50)
[2022-05-01] MEDS: NACL 0.9% 1,000 ML IV SCH ×3 (02:07→22:07)
[2022-05-01] MEDS: ACETAMINOPHEN 650 MG/20.3 ML UDC GT PRN ×3 (02:08→22:04)
[2022-05-01 02:15] VITALS: BP_SYST 129
--- NOTE | 2022-05-01 06:00 | NUR ---
ACCU CHECK 116. PT STATED GOOD NIGHT. G TUBE SITE CARE GIVEN WITH DRESSING CHANGED. RIGHT NEPHROSTOMY SITE REMAINS BACK HAND.
[2022-05-01] MEDS: MEROPENEM 1 GM in NS 100 ML IV SCH ×3 (07:36→22:05)
[2022-05-01] MEDS: metroNIDAZOLE 500 MG TABLET PO SCH ×3 (07:59→22:06)
[2022-05-01 08:00] VITALS: BP_SYST 144
[2022-05-01] MEDS: LANSOPRAZOLE 30 MG CAPSULE.DR GT SCH (08:00)
[2022-05-01 08:38] LABS: BASOPHILS % (AUTO) 0.3 % (0.0-2.0); EOSINOPHILS # (AUTO) 0.4 K/uL (0.0-0.4); EOSINOPHILS % (AUTO) 2.2 % (0.0-4.0); HEMATOCRIT 27.2 % (36-48); HEMOGLOBIN 9.5 g/dL (12.0-16.0); LYMPHOCYTES # (AUTO) 2.3 K/uL (1.0-5.5); MEAN CORPUSCULAR HEMOGLOBIN 33 pg (27-31); MEAN CORPUSCULAR HGB CONC 35 % (32-36); MEAN CORPUSCULAR VOLUME 94 fL (79.0-98.0); MONOCYTES # (AUTO) 1.6 K/uL (0.0-1.0); MONOCYTES % (AUTO) 9.8 % (1.7-9.3); NEUTROPHILS # (AUTO) 11.9 K/uL (1.8-7.7); PLATELET COUNT (AUTO) 354 K/uL (130-430); RED CELL DISTRIBUTION WIDTH 20.8 % (9.0-15.0); WHITE BLOOD COUNT (AUTO) 16.2 K/uL (4.8-10.8)
[2022-05-01 08:50] LABS: ALANINE AMINOTRANSFERASE 9 U/L (12-78); ANION GAP 11 (5-15); ASPARTATE AMINOTRANSFERASE 18 U/L (10-37); CHLORIDE 101 mmol/L (98-107); CREATININE 1.23 mg/dL (0.55-1.30); GLUCOSE 125 mg/dL (70-99); SODIUM SERUM 129 mmol/L (136-145); TOTAL BILIRUBIN 0.2 mg/dL (0.0-1.0); UREA NITROGEN, BLOOD 30 mg/dL (8-21)
[2022-05-01] MEDS: DOCUSATE SODIUM 100 MG CAPSULE PO SCH ×2 (09:00→22:06)
[2022-05-01] MEDS: FOLIC ACID 1 MG TABLET GT SCH (10:04)
[2022-05-01] MEDS: CALCIUM CARBONATE/VITAMIN D3 1 TAB TABLET GT SCH ×2 (10:04→22:07)
[2022-05-01] MEDS: FERROUS SULFATE 300 MG/5 ML UDC GT SCH ×2 (10:04→22:03)
[2022-05-01] MEDS: CARVEDILOL 25 MG TABLET (COREG) GT SCH ×2 (10:07→22:06)
[2022-05-01] MEDS: CITALOPRAM HYDROBROMIDE 20 MG TABLET GT SCH (10:07)
[2022-05-01] MEDS: LACTOBACILLUS RHAMNOSUS GG 1 CAP CAPSULE GT SCH ×2 (10:07→22:06)
[2022-05-01 12:00] VITALS: BP_SYST 138
[2022-05-01 14:13] LABS: NEUTROPHILS % (AUTO) 73.7 % (40.0-70.0)
[2022-05-01 16:36] VITALS: BP_SYST 140
[2022-05-01 21:00] VITALS: BP_SYST 144
[2022-05-01] MEDS: SIMVASTATIN 40 MG TABLET GT SCH (22:06)
[2022-05-02 00:15] VITALS: BP_SYST 128
--- NOTE | 2022-05-02 03:58 | NUR ---
TYLENOL 650 MG PO GIVEN FOR GENERAL PAIN & HELPFUL / .
--- NOTE | 2022-05-02 06:15 | NUR ---
Bladder scan done , 85 ML . patient tolerated / .
[2022-05-02] MEDS: MEROPENEM 1 GM in NS 100 ML IV SCH ×2 (06:31→13:17)
[2022-05-02] MEDS: metroNIDAZOLE 500 MG TABLET PO SCH ×3 (06:31→21:16)
[2022-05-02] MEDS: LANSOPRAZOLE 30 MG CAPSULE.DR GT SCH (06:32)
[2022-05-02 06:55] LABS: ALANINE AMINOTRANSFERASE 8 U/L (12-78); ALBUMIN 1.8 g/dL (3.4-4.8); ANION GAP 10 (5-15); ASPARTATE AMINOTRANSFERASE 19 U/L (10-37); CALCIUM 7.7 mg/dL (8.4-11.0); CHLORIDE 103 mmol/L (98-107); CREATININE 1.35 mg/dL (0.55-1.30); GLUCOSE 126 mg/dL (70-99); POTASSIUM 3.8 mmol/L (3.5-5.1); SODIUM SERUM 132 mmol/L (136-145); TOTAL BILIRUBIN 0.2 mg/dL (0.0-1.0); UREA NITROGEN, BLOOD 25 mg/dL (8-21)
[2022-05-02 08:00] VITALS: BP_SYST 130
--- NOTE | 2022-05-02 08:15 | NUR ---
RECEIVED IN BED AWAKE A/OX4 ASSESSMENT COMPLETED PLAN OF CARE REVIEWED WILL CONTINUE TO M ONITOR AND ASSESS CALL LIGHT PLACED IN REACH GT AT ABDOMEN CLAMPED FLUSHE PATENT WILL CONTINUE TO MONITOR AND ASSESS
[2022-05-02] MEDS: LACTOBACILLUS RHAMNOSUS GG 1 CAP CAPSULE GT SCH ×2 (09:11→21:15)
[2022-05-02] MEDS: FERROUS SULFATE 300 MG/5 ML UDC GT SCH ×2 (09:11→21:15)
[2022-05-02] MEDS: CITALOPRAM HYDROBROMIDE 20 MG TABLET GT SCH (09:12)
[2022-05-02] MEDS: CALCIUM CARBONATE/VITAMIN D3 1 TAB TABLET GT SCH ×2 (09:12→21:15)
[2022-05-02] MEDS: FOLIC ACID 1 MG TABLET GT SCH (09:14)
[2022-05-02] MEDS: DOCUSATE SODIUM 100 MG CAPSULE PO SCH ×2 (09:14→21:14)
[2022-05-02] MEDS: CARVEDILOL 25 MG TABLET (COREG) GT SCH ×2 (09:14→21:15)
[2022-05-02] MEDS: NACL 0.9% 1,000 ML IV SCH ×2 (09:15→17:39)
[2022-05-02 11:29] VITALS: BP_SYST 127
--- NOTE | 2022-05-02 11:40 | NUR ---
Discharge Planning: DCP followed up with referral to [facility] [phone] pt accepted to [facility] R[facility] 108. DCP to follow up with transport auth with [facility]#[phone]. Addendum: 05/02/22 at 1418 by Kriss Leger DP [facility] [phone] pt accepted to [facility], [facility]#[phone] provided transport auth#[id number]. Transport arrange with [facility] [phone] Will Call [facility] pending DC order.
--- NOTE | 2022-05-02 13:15 | NUR ---
PT BLOOD GLUCOSE 187 2 UNITS OF REG INSULIN COVERAGE GIVEN, PT REFUSED INSULIN AND AGREED TO TAKE AFTER TEACHING REINFORCED ON DIABETES AND COMPLIANCE WILL CONTINUE TO MONITOR AND ASSESS PT ENDORSES WHEN SHE IS ON INSULIN ORNAMENTER HAND SHE HAS PALPATATIONS PT MADE AWARE TO CALL FOR ANY CHANGES IN CONDITION
[2022-05-02] MEDS: INSULIN REGULAR, HUMAN 100 UNITS/ML, 10 ML VIAL (humuLIN R) SUBCUT PRN (13:19)
--- NOTE | 2022-05-02 14:30 | NUR ---
PT REASSESSED DENIES PAIN DENIES PALPATATIONS DENIES CHEST PAIN WILL CONTINUE TO MONITOR AND ASSESS
[2022-05-02 16:00] VITALS: BP_SYST 130
[2022-05-02] MEDS ORDERED: MEROPENEM 500 MG in NS 50 ML IV ONE (16:00)
[2022-05-02] MEDS ORDERED: SACCHAROMYCES BOULARDII 250 MG CAPSULE (FLORASTOR) GT SCH (16:00)
[2022-05-02] MEDS ORDERED: SACCHAROMYCES BOULARDII 250 MG CAPSULE (FLORASTOR) PO SCH (16:00)
--- NOTE | 2022-05-02 19:30 | NUR ---
OPENING NOTES: Patient received from AM shift. Patient is AA&Ox4 NOATAK able to make needs known, denies any pain or discomfort at this time. Chest rise is even and unlabored on RA. Normal heart sounds are present. Active bowel sounds x4, denies pain with palpation, no distention is noted, GT site present, patent flushes and clamped. Patient is on Pureed diet. Safety measures are in place and patient has call light within reach. Will resume care and continue to monitor throughout the shift.
[2022-05-02 20:00] VITALS: BP_SYST 149
[2022-05-02] MEDS ORDERED: LACTOBACILLUS RHAMNOSUS GG 1 CAP CAPSULE GT SCH (21:00)
[2022-05-02] MEDS: SIMVASTATIN 40 MG TABLET GT SCH (21:16)
[2022-05-02] MEDS: MEROPENEM 500 MG in NS 50 ML IV SCH (21:17)
[2022-05-03] VITALS: BP_SYST 137
--- NOTE | 2022-05-03 01:00 | NUR ---
PATIENT RESTING: Patient resting quietly. No acute distress noted. Vital signs within normal range.
--- NOTE | 2022-05-03 05:30 | NUR ---
BLADDER SCAN: 108ml assessed patient tolerated the procedure well denies pain.
[2022-05-03] MEDS: metroNIDAZOLE 500 MG TABLET PO SCH ×2 (05:39→14:14)
[2022-05-03] MEDS: NACL 0.9% 1,000 ML IV SCH ×2 (06:06→14:15)
[2022-05-03] MEDS: MEROPENEM 500 MG in NS 50 ML IV SCH ×3 (06:06→20:57)
[2022-05-03] MEDS: LANSOPRAZOLE 30 MG CAPSULE.DR GT SCH (06:11)
[2022-05-03 08:00] VITALS: BP_SYST 132
--- NOTE | 2022-05-03 08:00 | NUR ---
OPENING NOTE Patient resting in bed, AxO x4. No sign of distress, states she has neck pain 2/10. Patient denies numbness in her lower extremities at this time. IV is clean, dry, intact and running prescribed fluids. Gtube is patent and dressing is clean and dry. All needs met at this time and safety checks made.
[2022-05-03] MEDS: DOCUSATE SODIUM 100 MG CAPSULE PO SCH ×2 (09:00→20:22)
[2022-05-03] MEDS: ACETAMINOPHEN 650 MG/20.3 ML UDC GT PRN ×2 (09:30→20:22)
[2022-05-03] MEDS: FERROUS SULFATE 300 MG/5 ML UDC GT SCH ×2 (09:30→20:21)
[2022-05-03] MEDS: LACTOBACILLUS RHAMNOSUS GG 1 CAP CAPSULE GT SCH ×2 (09:30→20:23)
[2022-05-03] MEDS: CALCIUM CARBONATE/VITAMIN D3 1 TAB TABLET GT SCH ×2 (09:30→20:23)
[2022-05-03] MEDS: CITALOPRAM HYDROBROMIDE 20 MG TABLET GT SCH (09:31)
[2022-05-03] MEDS: FOLIC ACID 1 MG TABLET GT SCH (09:31)
[2022-05-03] MEDS: CARVEDILOL 25 MG TABLET (COREG) GT SCH ×2 (09:31→20:23)
[2022-05-03 12:00] VITALS: BP_SYST 135
[2022-05-03] MEDS: INSULIN REGULAR, HUMAN 100 UNITS/ML, 10 ML VIAL (humuLIN R) SUBCUT PRN (12:20)
--- NOTE | 2022-05-03 13:00 | NUR ---
SIMON CATHETER Simon catheter inserted, patient tolerated well. Draining yellow urine to gravity.
[2022-05-03 16:00] VITALS: BP_SYST 133
--- NOTE | 2022-05-03 18:06 | NUR ---
OPENING NOTE Patient resting in bed, AxO x4. IV site is clean, dry, intact, and running prescribed fluids. Otto catheter is patent and draining yellow urine. Gtube is clean, and patent. Updated patient on her plan of care and possible discharge back to [facility]. Patient supported with pillows to offload weight. All needs met at this time and safety checks made. Will endorse to rotary engraver nurse. Addendum: 05/04/22 at 0728 by Myah Solis LVN Closing Note *
--- NOTE | 2022-05-03 19:25 | NUR ---
I CALLED [facility] I SPOKE TO DIMITRI SHE SAID ROOM 108 IS ASSIGNED TO AN ISOLATION PERSON THEY ARE WAITING ANY MOMENT SO SHE GAVE ME A PHONE NUMBER SO I CALLED [place] ADMISSION COORDINATOR TO CALLED ME BACK HIS NUMBER IS [phone] HE HAS NOT ANSWER BACK YET I TOLD DR. OCONNOR ALREADY HE WAS ASKING
--- NOTE | 2022-05-03 19:42 | NUR ---
CALLED [facility] I SPOKE TO JOY POLICY AND PLANNING MANAGER PICKED UP TIME WILL BE [phone]
[2022-05-03 20:00] VITALS: BP_SYST 148
[2022-05-03] MEDS: SIMVASTATIN 40 MG TABLET GT SCH (20:22)
[2022-05-03 21:06] VITALS: BP_SYST 143
--- NOTE | 2022-05-03 22:00 | NUR ---
Discharged notes Report given to Sel[facility] Lara with all the information , Discharged with saline lock to left forearm g.22 for IV antibiotic , Otto catheter, Gtube,patient alert/oriented x4 , with belonging eyeglass with the patient , endorsed from morning shift that dentures, cell phone and hearing aide was missing , patient aware.to [facility] Wilkinson via [facility].
== END 2022-05-03 22:00 | DRG 871 ==
LOC: SED 11:30 → SMU 15:44
PROVIDERS: ADMIT Family Medicine; ATTEND Family Medicine
DX: A41.9 Sepsis, unspecified organism (principal); N17.0 Acute kidney failure with tubular necrosis; N39.0 Urinary tract infection, site not specified; E87.1 Hypo-osmolality and hyponatremia; I12.9 Hypertensive chronic kidney disease with stage 1 through stage 4 chronic kidney disease, or unspecified chronic kidney disease; F03.90 Unspecified dementia, unspecified severity, without behavioral disturbance, psychotic disturbance, mood disturbance, and anxiety; N18.9 Chronic kidney disease, unspecified; D64.9 Anemia, unspecified; E11.22 Type 2 diabetes mellitus with diabetic chronic kidney disease; E86.0 Dehydration; Z20.822 Contact with and (suspected) exposure to COVID-19; J44.9 Chronic obstructive pulmonary disease, unspecified; E87.5 Hyperkalemia; N99.522 Malfunction of incontinent external stoma of urinary tract; Y83.8 Other surgical procedures as the cause of abnormal reaction of the patient, or of later complication, without mention of misadventure at the time of the procedure; Z88.8 Allergy status to other drugs, medicaments and biological substances; Z88.1 Allergy status to other antibiotic agents; Z88.2 Allergy status to sulfonamides; Z79.899 Other long term (current) drug therapy; Y92.89 Other specified places as the place of occurrence of the external cause
CPT/HCPCS: 36415; 76376; 80048; 80053; 81000; 82150; 82962; 83605; 83690; 85007; 85025; 85027; 85610-TC; 85730-TC; 87040; 87081; 87086; 92610-GN; 96365; 99285; J0692; J1815; J2185; J2543; J7060

== ENCOUNTER 2022-06-27 13:38 | Inpatient (IN) | payer OTHER, MEDICAID ==
[~2022-06-27] VITALS: Ht 170.2 cm; Wt 72.6 kg
[~2022-06-27 13:38] MED LIST changes: -DIPH25CA83 PEG; -LORA10CA PEG; -MECL-225 PEG
[2022-06-27] MEDS ORDERED: ONDANSETRON 4 MG ODT TAB PO ONE (14:30)
[2022-06-27 14:34] VITALS: BP_SYST 139
[2022-06-27 15:14] LABS: BASOPHILS # (AUTO) 0.1 K/uL (0.0-0.2); BASOPHILS % (AUTO) 0.4 % (0.0-2.0); EOSINOPHILS # (AUTO) 0.2 K/uL (0.0-0.4); EOSINOPHILS % (AUTO) 1.4 % (0.0-4.0); HEMATOCRIT 37.4 % (36-48); HEMOGLOBIN 12.9 g/dL (12.0-16.0); LYMPHOCYTES # (AUTO) 3.2 K/uL (1.0-5.5); LYMPHOCYTES % (AUTO) 21.2 % (20.5-51.5); MEAN CORPUSCULAR HEMOGLOBIN 34 pg (27-31); MEAN CORPUSCULAR HGB CONC 35 % (32-36); MEAN CORPUSCULAR VOLUME 98 fL (79.0-98.0); MONOCYTES # (AUTO) 1.2 K/uL (0.0-1.0); MONOCYTES % (AUTO) 8.1 % (1.7-9.3); NEUTROPHILS # (AUTO) 10.4 K/uL (1.8-7.7); NEUTROPHILS % (AUTO) 68.9 % (40.0-70.0); PLATELET COUNT (AUTO) 312 K/uL (130-430); RED BLOOD CELL COUNT(AUTO) 3.82 MIL/uL (4.2-6.2); RED CELL DISTRIBUTION WIDTH 13.2 % (9.0-15.0); WHITE BLOOD COUNT (AUTO) 15.1 K/uL (4.8-10.8)
[2022-06-27 15:19] LABS: ANION GAP 7 (5-15); CALCIUM 12.2 mg/dL (8.4-11.0); CHLORIDE 94 mmol/L (98-107); CREATININE 1.88 mg/dL (0.55-1.30); GLUCOSE 160 mg/dL (70-99); POTASSIUM 4.1 mmol/L (3.5-5.1); SODIUM SERUM 136 mmol/L (136-145); UREA NITROGEN, BLOOD 50 mg/dL (8-21)
[2022-06-27 15:38] LABS: ALANINE AMINOTRANSFERASE 15 U/L (12-78); ALBUMIN 3.3 g/dL (3.4-4.8); AMYLASE 87 U/L (0-100); ASPARTATE AMINOTRANSFERASE 18 U/L (10-37); C-REACTIVE PROTEIN QUANT 1.8 mg/dL (0-0.5); LIPASE 172 U/L (73-393); TOTAL BILIRUBIN 0.6 mg/dL (0.0-1.0)
[2022-06-27 16:34] LABS: BILIRUBIN,URINE NEGATIVE (NEGATIVE); BLOOD, URINE 2+ (NEGATIVE); CLARITY/URINE CLOUDY (CLEAR); COLOR,URINE YELLOW (YELLOW); GLUCOSE,URINE NEGATIVE (NEGATIVE); KETONES,URINE NEGATIVE (NEGATIVE); LEUKOCYTE ESTERASE ,URINE 2+ (NEGATIVE); NITRITE, URINE NEGATIVE (NEGATIVE); PH,URINE 8.5 (5.0-8.0); PROTEIN URINE 2+ (NEGATIVE); UROBILINOGEN,URINE 0.2 (0.2-1.0)
[2022-06-27 16:47] LABS: BACTERIA,URINE FEW /HPF (None Seen); WBC,URINE 20-50 /HPF (0-3)
[2022-06-27 16:48] LABS: MUCUS,URINE 2+ /LPF (None Seen)
[2022-06-27] MEDS ORDERED: cefTRIAXone 1 GM in LIDOCAINE 1%, 20 ML MDV 2.1 ML IM ONE (17:15)
[2022-06-27] MEDS ORDERED: NACL 0.9% 1,000 ML IV ONE (17:30)
[2022-06-27] MEDS ORDERED: ONDA4TAB55 PO (17:34)
[2022-06-27] MEDS ORDERED: ONDANSETRON HCL 4 MG/2 ML VIAL IVP ONE (18:15)
[2022-06-27] MEDS ORDERED: KCL 20 mEq in NS 1000 mL 1,000 ML IV ONE (18:30)
[2022-06-27] MEDS ORDERED: MILK OF MAGNESIA 30 ML UDC GT PRN (19:15)
[2022-06-27] MEDS ORDERED: ACETAMINOPHEN 650 MG/20.3 ML UDC GT PRN (19:15)
[2022-06-27] MEDS ORDERED: MEROPENEM 500 MG in NS 50 ML IV ONE (20:00)
[2022-06-27] MEDS: FERROUS SULFATE 300 MG/5 ML UDC GT SCH ×2 (21:00→22:20)
[2022-06-27] MEDS: KCL 20 mEq in NS 1000 mL 1,000 ML IV SCH (21:20)
[2022-06-27] MEDS: LACTOBACILLUS RHAMNOSUS GG 1 CAP CAPSULE GT SCH (22:20)
[2022-06-27] MEDS: CARVEDILOL 25 MG TABLET (COREG) GT SCH (22:20)
[2022-06-27] MEDS: ENOXAPARIN SODIUM 30 MG/0.3 ML SYRINGE SUBCUT SCH (22:21)
[2022-06-27] MEDS: DOCUSATE SODIUM 100 MG CAPSULE PO SCH (22:21)
[2022-06-27] MEDS: CALCIUM CARBONATE/VITAMIN D3 1 TAB TABLET GT SCH (22:21)
[2022-06-28 00:32] VITALS: BP_SYST 137
[2022-06-28] MEDS: MEROPENEM 500 MG in NS 50 ML IV SCH ×3 (06:38→22:36)
[2022-06-28 07:00] LABS: ANION GAP 8 (5-15); CALCIUM 11.3 mg/dL (8.4-11.0); CHLORIDE 100 mmol/L (98-107); CREATININE 1.91 mg/dL (0.55-1.30); GLUCOSE 151 mg/dL (70-99); POTASSIUM 3.8 mmol/L (3.5-5.1); SODIUM SERUM 141 mmol/L (136-145); UREA NITROGEN, BLOOD 50 mg/dL (8-21)
[2022-06-28 07:02] LABS: BASOPHILS % (AUTO) 0.2 % (0.0-2.0); EOSINOPHILS # (AUTO) 0.2 K/uL (0.0-0.4); EOSINOPHILS % (AUTO) 1.3 % (0.0-4.0); HEMATOCRIT 33.4 % (36-48); HEMOGLOBIN 11.9 g/dL (12.0-16.0); LYMPHOCYTES # (AUTO) 2.5 K/uL (1.0-5.5); LYMPHOCYTES % (AUTO) 18.1 % (20.5-51.5); MEAN CORPUSCULAR HEMOGLOBIN 35 pg (27-31); MEAN CORPUSCULAR HGB CONC 36 % (32-36); MEAN CORPUSCULAR VOLUME 99 fL (79.0-98.0); MONOCYTES # (AUTO) 1.2 K/uL (0.0-1.0); MONOCYTES % (AUTO) 8.9 % (1.7-9.3); NEUTROPHILS # (AUTO) 9.7 K/uL (1.8-7.7); NEUTROPHILS % (AUTO) 71.5 % (40.0-70.0); PLATELET COUNT (AUTO) 265 K/uL (130-430); RED BLOOD CELL COUNT(AUTO) 3.37 MIL/uL (4.2-6.2); RED CELL DISTRIBUTION WIDTH 13.3 % (9.0-15.0); WHITE BLOOD COUNT (AUTO) 13.6 K/uL (4.8-10.8)
[2022-06-28 08:20] VITALS: BP_SYST 163
[2022-06-28] MEDS: DOCUSATE SODIUM 100 MG CAPSULE PO SCH ×2 (09:00→22:34)
[2022-06-28] MEDS: FERROUS SULFATE 300 MG/5 ML UDC GT SCH ×2 (09:00→22:35)
[2022-06-28] MEDS: BISACODYL 5 MG TABLET.DR (DULCOLAX) GT SCH (09:00)
[2022-06-28] MEDS: FOLIC ACID 1 MG TABLET GT SCH (09:00)
[2022-06-28] MEDS: LACTOBACILLUS RHAMNOSUS GG 1 CAP CAPSULE GT SCH ×2 (09:00→22:33)
[2022-06-28] MEDS ORDERED: PANTOPRAZOLE SODIUM 40 MG TAB PO SCH (09:00)
[2022-06-28] MEDS: CALCIUM CARBONATE/VITAMIN D3 1 TAB TABLET GT SCH ×2 (09:04→22:35)
[2022-06-28] MEDS: CARVEDILOL 25 MG TABLET (COREG) GT SCH ×2 (09:07→22:35)
[2022-06-28] MEDS ORDERED: ONDANSETRON HCL 4 MG/2 ML VIAL IVP PRN (11:15)
[2022-06-28] MEDS: KCL 20 mEq in NS 1000 mL 1,000 ML IV SCH ×2 (11:27→22:37)
[2022-06-28 12:30] VITALS: BP_SYST 122
[2022-06-28 16:30] VITALS: BP_SYST 150
[2022-06-28] MEDS: CITALOPRAM HYDROBROMIDE 20 MG TABLET GT SCH (17:17)
[2022-06-28 20:00] VITALS: BP_SYST 114
[2022-06-28] MEDS: ENOXAPARIN SODIUM 30 MG/0.3 ML SYRINGE SUBCUT SCH (22:33)
[2022-06-28] MEDS: INSULIN REGULAR, HUMAN 100 UNITS/ML, 10 ML VIAL (humuLIN R) SUBCUT PRN (23:08)
[2022-06-29 01:01] VITALS: BP_SYST 143
[2022-06-29 06:43] LABS: BASOPHILS % (AUTO) 0.3 % (0.0-2.0); EOSINOPHILS # (AUTO) 0.2 K/uL (0.0-0.4); EOSINOPHILS % (AUTO) 1.6 % (0.0-4.0); HEMATOCRIT 28.7 % (36-48); HEMOGLOBIN 10.1 g/dL (12.0-16.0); LYMPHOCYTES # (AUTO) 2.6 K/uL (1.0-5.5); LYMPHOCYTES % (AUTO) 21.2 % (20.5-51.5); MEAN CORPUSCULAR HEMOGLOBIN 35 pg (27-31); MEAN CORPUSCULAR HGB CONC 35 % (32-36); MEAN CORPUSCULAR VOLUME 99 fL (79.0-98.0); MONOCYTES # (AUTO) 1.1 K/uL (0.0-1.0); MONOCYTES % (AUTO) 8.8 % (1.7-9.3); NEUTROPHILS # (AUTO) 8.3 K/uL (1.8-7.7); NEUTROPHILS % (AUTO) 68.1 % (40.0-70.0); PLATELET COUNT (AUTO) 220 K/uL (130-430); RED BLOOD CELL COUNT(AUTO) 2.89 MIL/uL (4.2-6.2); RED CELL DISTRIBUTION WIDTH 12.7 % (9.0-15.0); WHITE BLOOD COUNT (AUTO) 12.2 K/uL (4.8-10.8)
[2022-06-29 06:56] LABS: ANION GAP 4 (5-15); CALCIUM 10.3 mg/dL (8.4-11.0); CHLORIDE 104 mmol/L (98-107); CREATININE 1.64 mg/dL (0.55-1.30); GLUCOSE 135 mg/dL (70-99); POTASSIUM 4.5 mmol/L (3.5-5.1); SODIUM SERUM 135 mmol/L (136-145); UREA NITROGEN, BLOOD 48 mg/dL (8-21)
[2022-06-29] MEDS: MEROPENEM 500 MG in NS 50 ML IV SCH ×3 (07:04→21:05)
[2022-06-29] MEDS: CARVEDILOL 25 MG TABLET (COREG) GT SCH ×2 (08:20→20:48)
[2022-06-29] MEDS: FERROUS SULFATE 300 MG/5 ML UDC GT SCH ×2 (08:51→20:57)
[2022-06-29] MEDS: CALCIUM CARBONATE/VITAMIN D3 1 TAB TABLET GT SCH ×2 (08:51→20:48)
[2022-06-29] MEDS: DOCUSATE SODIUM 100 MG CAPSULE PO SCH ×2 (08:51→20:48)
[2022-06-29] MEDS: BISACODYL 5 MG TABLET.DR (DULCOLAX) GT SCH (08:51)
[2022-06-29] MEDS: FOLIC ACID 1 MG TABLET GT SCH (08:52)
[2022-06-29] MEDS: LACTOBACILLUS RHAMNOSUS GG 1 CAP CAPSULE GT SCH ×2 (08:52→20:47)
[2022-06-29 09:30] VITALS: BP_SYST 100
[2022-06-29] MEDS: KCL 20 mEq in NS 1000 mL 1,000 ML IV SCH (10:53)
[2022-06-29] MEDS: INSULIN REGULAR, HUMAN 100 UNITS/ML, 10 ML VIAL (humuLIN R) SUBCUT PRN ×2 (12:06→21:06)
[2022-06-29] MEDS: CITALOPRAM HYDROBROMIDE 20 MG TABLET GT SCH (17:03)
[2022-06-29 20:37] VITALS: BP_SYST 107
[2022-06-29] MEDS: ENOXAPARIN SODIUM 30 MG/0.3 ML SYRINGE SUBCUT SCH (20:48)
[2022-06-30] MEDS: KCL 20 mEq in NS 1000 mL 1,000 ML IV SCH (00:46)
[2022-06-30 04:15] VITALS: BP_SYST 115
[2022-06-30] MEDS: MEROPENEM 500 MG in NS 50 ML IV SCH ×3 (05:47→22:07)
[2022-06-30 06:43] LABS: BASOPHILS # (AUTO) 0.1 K/uL (0.0-0.2); BASOPHILS % (AUTO) 0.5 % (0.0-2.0); EOSINOPHILS # (AUTO) 0.5 K/uL (0.0-0.4); EOSINOPHILS % (AUTO) 4.9 % (0.0-4.0); HEMATOCRIT 29.5 % (36-48); HEMOGLOBIN 10.4 g/dL (12.0-16.0); LYMPHOCYTES # (AUTO) 2.7 K/uL (1.0-5.5); MEAN CORPUSCULAR HEMOGLOBIN 35 pg (27-31); MEAN CORPUSCULAR HGB CONC 35 % (32-36); MEAN CORPUSCULAR VOLUME 99 fL (79.0-98.0); MONOCYTES # (AUTO) 0.9 K/uL (0.0-1.0); MONOCYTES % (AUTO) 9.1 % (1.7-9.3); NEUTROPHILS # (AUTO) 5.5 K/uL (1.8-7.7); NEUTROPHILS % (AUTO) 57.5 % (40.0-70.0); PLATELET COUNT (AUTO) 226 K/uL (130-430); RED BLOOD CELL COUNT(AUTO) 2.98 MIL/uL (4.2-6.2); RED CELL DISTRIBUTION WIDTH 12.8 % (9.0-15.0); WHITE BLOOD COUNT (AUTO) 9.6 K/uL (4.8-10.8)
[2022-06-30 07:12] LABS: ANION GAP 6 (5-15); CALCIUM 9.6 mg/dL (8.4-11.0); CHLORIDE 103 mmol/L (98-107); CREATININE 1.35 mg/dL (0.55-1.30); GLUCOSE 102 mg/dL (70-99); POTASSIUM 5.4 mmol/L (3.5-5.1); SODIUM SERUM 135 mmol/L (136-145); UREA NITROGEN, BLOOD 45 mg/dL (8-21)
[2022-06-30 08:00] VITALS: BP_SYST 122
[2022-06-30 12:00] VITALS: BP_SYST 110
[2022-06-30] MEDS: FERROUS SULFATE 300 MG/5 ML UDC GT SCH ×2 (13:05→21:00)
[2022-06-30] MEDS: BISACODYL 5 MG TABLET.DR (DULCOLAX) GT SCH (13:06)
[2022-06-30] MEDS: LACTOBACILLUS RHAMNOSUS GG 1 CAP CAPSULE GT SCH ×2 (13:06→22:06)
[2022-06-30] MEDS: FOLIC ACID 1 MG TABLET GT SCH (13:06)
[2022-06-30] MEDS: DOCUSATE SODIUM 100 MG CAPSULE PO SCH ×2 (13:06→22:06)
[2022-06-30] MEDS: CARVEDILOL 25 MG TABLET (COREG) GT SCH ×2 (13:07→22:07)
[2022-06-30] MEDS: CALCIUM CARBONATE/VITAMIN D3 1 TAB TABLET GT SCH ×2 (13:08→22:08)
[2022-06-30 16:00] VITALS: BP_SYST 120
[2022-06-30] MEDS: 0.45% NACL 1,000 ML IV SCH (16:23)
[2022-06-30] MEDS: CITALOPRAM HYDROBROMIDE 20 MG TABLET GT SCH (17:45)
[2022-06-30] MEDS: ENOXAPARIN SODIUM 30 MG/0.3 ML SYRINGE SUBCUT SCH (22:08)
[2022-07-01] VITALS: BP_SYST 149
[2022-07-01] MEDS: 0.45% NACL 1,000 ML IV SCH (05:40)
[2022-07-01] MEDS: MEROPENEM 500 MG in NS 50 ML IV SCH ×4 (05:58→14:46)
[2022-07-01 08:00] VITALS: BP_SYST 135
[2022-07-01] MEDS: BISACODYL 5 MG TABLET.DR (DULCOLAX) GT SCH (09:00)
[2022-07-01] MEDS: DOCUSATE SODIUM 100 MG CAPSULE PO SCH ×2 (09:00→20:20)
[2022-07-01] MEDS: FERROUS SULFATE 300 MG/5 ML UDC GT SCH ×2 (09:00→20:20)
[2022-07-01] MEDS: LACTOBACILLUS RHAMNOSUS GG 1 CAP CAPSULE GT SCH ×2 (09:55→20:20)
[2022-07-01] MEDS: CARVEDILOL 25 MG TABLET (COREG) GT SCH ×2 (09:56→20:20)
[2022-07-01] MEDS: FOLIC ACID 1 MG TABLET GT SCH (09:56)
[2022-07-01] MEDS: CALCIUM CARBONATE/VITAMIN D3 1 TAB TABLET GT SCH ×2 (09:58→20:20)
[2022-07-01 12:00] VITALS: BP_SYST 140
[2022-07-01] MEDS ORDERED: MENTHOL/ZINC OXIDE 113 GM OINT. TP SCH (15:00)
[2022-07-01 16:18] VITALS: BP_SYST 140
[2022-07-01 16:31] VITALS: BP_SYST 140
[2022-07-01] MEDS: CITALOPRAM HYDROBROMIDE 20 MG TABLET GT SCH (17:13)
[2022-07-01] MEDS: INSULIN REGULAR, HUMAN 100 UNITS/ML, 10 ML VIAL (humuLIN R) SUBCUT PRN (18:14)
== END 2022-07-01 20:30 | DRG 871 ==
LOC: SED 13:38 → SMU 17:11
PROVIDERS: ADMIT Family Medicine; ATTEND Family Medicine
DX: A41.9 Sepsis, unspecified organism (principal); N17.0 Acute kidney failure with tubular necrosis; N39.0 Urinary tract infection, site not specified; Z16.24 Resistance to multiple antibiotics; E86.0 Dehydration; E11.9 Type 2 diabetes mellitus without complications; J44.9 Chronic obstructive pulmonary disease, unspecified; I10 Essential (primary) hypertension; F03.90 Unspecified dementia, unspecified severity, without behavioral disturbance, psychotic disturbance, mood disturbance, and anxiety; Z87.442 Personal history of urinary calculi; Z79.899 Other long term (current) drug therapy; Z88.8 Allergy status to other drugs, medicaments and biological substances; Z88.1 Allergy status to other antibiotic agents; Z88.2 Allergy status to sulfonamides; Z93.1 Gastrostomy status
CPT/HCPCS: 36415; 76770; 80048; 80053; 81000; 82150; 82962; 83605; 83690; 83735; 84484; 85025; 86140; 87081; 87086; 96361; 96372; 96374; 99285; J0696; J1650; J1815; J2001; J2185; J2405; J3480; J7030; Q0162